=== PATIENT | female | born 1990 | race Caucasian/White ===

== ENCOUNTER 2016-08-05 14:07 | Outpatient (CLI) | payer MEDICAID ==
[2016-08-05 14:57] LABS: APPEARANCE,URINE SLIGHTLY-CLOUDY; BILIRUBIN,URINE NEGATIVE (NEGATIVE); GLUCOSE, URINE NEGATIVE (NEGATIVE); KETONES,URINE NEGATIVE (NEGATIVE); LEUKOCYTE ESTERASE,URINE SMALL (NEGATIVE); NITRITE,URINE POSITIVE (NEGATIVE); PROTEIN,URINE 30 mg/dL (NEGATIVE); URINE SPECIFIC GRAVITY 1.018
[2016-08-05 15:22] LABS: URINE BARBITURATES SCREEN NEGATIVE; URINE OPIATES LOW NEGATIVE; URINE PHENCYCLIDINE SCREEN NEGATIVE
[2016-08-05 15:28] LABS: URINE METHADONE SCREEN UNCONFIRMED POSITIVE
--- NOTE | 2016-08-05 16:00 | L&D Flow Sheet ---
LD Flowsheet Datetime Report Generated by CPN: 08/05/2016 16:00 Datetime: 08/05/2016 15:47 Vital Signs NBP Sys/Gabrielle/Mean (mmHg): 102 (QS system process) : 53 (QS system process) : 74 (QS system process) Pulse: 62 (QS system process) Datetime: 08/05/2016 15:32 Vital Signs NBP Sys/Gabrielle/Mean (mmHg): 112 (QS system process) : 58 (QS system process) : 79 (QS system process) Pulse: 64 (QS system process) Datetime: 08/05/2016 15:30 Patient Position/Activity: Left Tilt; Low Fowlers (Milli Israel, RN) Datetime: 08/05/2016 15:29 Communication Communication Comments: patient returned to unit from [place] (Milli Israel, RN) Datetime: 08/05/2016 14:49 Communication Communication Comments: patient off monitor for transport to US (Milli Israel, RN) Datetime: 08/05/2016 14:40 Assessment A Monitor Interventions for FHR: Ultrasound Adjusted (Milli Israel, RN) Datetime: 08/05/2016 14:38 Vital Signs NBP Sys/Gabrielle/Mean (mmHg): 101 (QS system process) : 57 (QS system process) : 72 (QS system process) Pulse: 68 (QS system process) Datetime: 08/05/2016 14:35 Pain Pain Scale: 0 (Milli Israel, RN) Pain Presence: None/Denies (Milli Israel, RN) Pain Type: N/A (Milli Israel, RN) Vaginal Exam Vaginal Bleeding: None (Milli Wood, RN) Maternal Assessment Level of Consciousness: Fully Conscious (Milli Wood, RN) DTR's/Clonus: DTRs 2+; No Clonus (Milli Wood, RN) Headache: Denies (Milli Wood, RN) Breath Sounds, Left: Clear and Equal (Milli Wood, RN) Breath Sounds, Right: Clear and Equal (Milli Wood, RN) Nausea/Vomiting: Denies (Milli Wood, RN) RUQ Epigastric Pain: Denies (Milli Wood, RN) Patient Care Oxygen Method: Room Air (Milli Wood RN) Patient Position/Activity: Left Tilt; Semi-Fowlers (Milli Wood, YAMILETH) Comfort Measures: Family Support (Milli Wood RN) I/O Interventions: Clear Liquids Given (Milli Wood RN) Teaching Instructional Method: Demo (Milli Wood RN) Plan of Care: Plan of Care Discussed (Milli Wood RN) Unit Routine: [place] to Room; Call Meyer; Bed (Milli Wood RN) Datetime: 08/05/2016 14:26 Communication Communication Comments: Amelia Quinn CNM notified of patient sent from office with complaints of increased pelvic pressure, cervical exam 1/thick/-2 in office today. Order received from Amelia Quinn CNM for U/S for cervical length (Milli Wood RN)
--- NOTE | 2016-08-05 17:01 | Non Stress Test Report ---
Non Stress Test Datetime Report Generated by CPN: 08/05/2016 17:00 DEMOGRAPHIC EGA NST: 32.5 INDICATION Indication for Study: Ordered by Provider MONITORING Monitor Explained: Monitor Explained; Test Explained; Patient Verbalized Understanding Time on Monitor: 08/05/2016 14:27 Time off Monitor: 08/05/2016 16:36 NST Duration: 129 NST INTERVENTIONS NST Interventions: PO Hydration; Reposition Patient Physician Notified NST: Dr. Quach BABY A: [id number] BABY A Movement : Present Contraction Frequency : none FHR Baseline : 125 Accelerations : 15X15 Decelerations : None Variability : Moderate 6-25bpm NST Review: Meets Criteria for Reactive NST NST Review and Verified By : Yonathan Reynolds RN NST Results: Reactive NST REPORT Report Trigger: Send Report
== END 2016-08-05 16:40 | disposition home or self-care (01) ==
LOC: LC 14:07
PROVIDERS: ATTEND Obstetrics & Gynecology
PROC: 4A1HXCZ Monitoring of Products of Conception, Cardiac Rate, External Approach (ICD-10-PCS; principal; 2016-08-05)
DX: O47.03 False labor before 37 completed weeks of gestation, third trimester (principal); Z3A.32 32 weeks gestation of pregnancy
CPT/HCPCS: 59025; 76815; 80307; 81001; 87086; 87088; 87186

== ENCOUNTER 2016-08-16 20:11 | Outpatient (CLI) | payer MEDICAID ==
[2016-08-16 20:52] LABS: APPEARANCE,URINE CLEAR; BILIRUBIN,URINE NEGATIVE (NEGATIVE); GLUCOSE, URINE NEGATIVE (NEGATIVE); KETONES,URINE NEGATIVE (NEGATIVE); LEUKOCYTE ESTERASE,URINE TRACE (NEGATIVE); NITRITE,URINE NEGATIVE (NEGATIVE); PROTEIN,URINE NEGATIVE (NEGATIVE); URINE SPECIFIC GRAVITY 1.008; UROBILINOGEN,URINE NEGATIVE mg/dL (<2.0)
[2016-08-16 21:23] LABS: URINE BARBITURATES SCREEN NEGATIVE; URINE OPIATES LOW NEGATIVE; URINE PHENCYCLIDINE SCREEN NEGATIVE
[2016-08-16 21:27] LABS: URINE METHADONE SCREEN UNCONFIRMED POSITIVE
--- NOTE | 2016-08-16 21:39 | Non Stress Test Report ---
Non Stress Test Datetime Report Generated by CPN: 08/16/2016 21:39 DEMOGRAPHIC EGA NST: 34.2 INDICATION Indication for Study: Other Indication for Study (NST) Other: LC MONITORING Monitor Explained: Monitor Explained; Test Explained; Patient Verbalized Understanding Time on Monitor: 08/16/2016 20:31 Time off Monitor: 08/16/2016 21:27 NST Duration: 56 NST INTERVENTIONS NST Interventions: PO Hydration Physician Notified NST: Dr. Neilsen BABY A: [id number] BABY A Movement : Present Contraction Frequency : irreg FHR Baseline : 130 Accelerations : 15X15 Decelerations : None Variability : Moderate 6-25bpm NST Review: Meets Criteria for Reactive NST NST Review and Verified By : Loree Mcadams Rn NST Results: Reactive NST REPORT Report Trigger: Send Report
== END 2016-08-16 21:38 | disposition home or self-care (01) ==
LOC: LC 20:11
PROVIDERS: ATTEND Specialist
PROC: 4A1HXCZ Monitoring of Products of Conception, Cardiac Rate, External Approach (ICD-10-PCS; principal; 2016-08-16)
DX: O47.03 False labor before 37 completed weeks of gestation, third trimester (principal); Z3A.34 34 weeks gestation of pregnancy
CPT/HCPCS: 59025; 80307; 81001

== ENCOUNTER 2016-09-08 12:41 | Outpatient (CLI) | payer MEDICAID ==
[2016-09-08 13:54] LABS: APPEARANCE,URINE SLIGHTLY-CLOUDY; BILIRUBIN,URINE NEGATIVE (NEGATIVE); GLUCOSE, URINE NEGATIVE (NEGATIVE); KETONES,URINE NEGATIVE (NEGATIVE); LEUKOCYTE ESTERASE,URINE SMALL (NEGATIVE); NITRITE,URINE NEGATIVE (NEGATIVE); PROTEIN,URINE NEGATIVE (NEGATIVE); URINE SPECIFIC GRAVITY 1.014
--- NOTE | 2016-09-08 14:00 | L&D Flow Sheet ---
LD Flowsheet Datetime Report Generated by CPN: 09/08/2016 14:00 Datetime: 09/08/2016 13:29 I/O Interventions: Up to BR (Jaskaran Claudia, RN) Datetime: 09/08/2016 13:24 Communication Communication Comments: P Quinn CNM notified of reactive NST; pt c/o contractions, provider reviewed strip, orders for UA. (Jaskaran Claudia, RN) Datetime: 09/08/2016 13:20 Patient Care Comments: Pt instructed to PO hydrate x1 pitcher of water now. (Jaskaran Claudia, RN) Datetime: 09/08/2016 13:17 Vital Signs NBP Sys/Gabrielle/Mean (mmHg): 108 (QS system process) : 65 (QS system process) : 80 (QS system process) Pulse: 67 (QS system process) LaborFlag: OB Triage (QS system process) Datetime: 09/08/2016 13:10 Patient Care Patient Position/Activity: Left Lateral (Jaskaran Claudia, RN) Datetime: 09/08/2016 12:56 Vital Signs NBP Sys/Gabrielle/Mean (mmHg): 108 (QS system process) : 53 (QS system process) : 77 (QS system process) Pulse: 75 (QS system process) LaborFlag: OB Triage (QS system process) Datetime: 09/08/2016 12:54 Respirations: 16 (Jaskaran Claudia, RN) Temperature (F): 97.8 (Jaskaran Claudia, RN) Temperature (C): 36.6 (QS system process) Pain Pain Presence: None/Denies (Jaskaran Claudia, RN) Maternal Assessment Level of Consciousness: Fully Conscious (Jaskaran Claudia, RN) DTR's/Clonus: DTRs 1+; No Clonus (Jaskaran Claudia, RN) Headache: Denies (Jaskaran Claudia, RN) Breath Sounds, Left: Clear and Equal (Jaskaran Claudia, RN) Breath Sounds, Right: Clear and Equal (Jaskaran Claudia, RN) Nausea/Vomiting: Denies (Jaskaran Claudia, RN) RUQ Epigastric Pain: Denies (Jaskaran Claudia, RN) I/O Interventions: Popsicle (Jaskaran Claudia, RN) Communication Communication Comments: Pt to labor and delivery for repeat NST from [facility]. Pt in no distress, no complaints noted, denies pain. (Jaskaran Claudia, RN) LaborFlag: OB Triage (QS system process)
--- NOTE | 2016-09-08 14:09 | Non Stress Test Report ---
Non Stress Test Datetime Report Generated by CPN: 09/08/2016 14:09 DEMOGRAPHIC EGA NST: 37.4 INDICATION Indication for Study: Ordered by Provider MONITORING Monitor Explained: Monitor Explained; Test Explained; Patient Verbalized Understanding Time on Monitor: 09/08/2016 13:00 Time off Monitor: 09/08/2016 13:32 NST Duration: 32 NST INTERVENTIONS NST Interventions: PO Hydration Physician Notified NST: P OLEARY CNM BABY A: [id number] BABY A Movement : Present Contraction Frequency : irregular FHR Baseline : 120 Accelerations : 15X15 Decelerations : None Variability : Moderate 6-25bpm NST Review: Meets Criteria for Reactive NST NST Review and Verified By : Betito Jennings RN NST Results: Reactive NST REPORT Report Trigger: Send Report
[2016-09-08 14:24] LABS: URINE BARBITURATES SCREEN NEGATIVE; URINE OPIATES LOW NEGATIVE; URINE PHENCYCLIDINE SCREEN NEGATIVE
[2016-09-08 14:26] LABS: URINE METHADONE SCREEN UNCONFIRMED POSITIVE
== END 2016-09-08 14:06 | disposition home or self-care (01) ==
LOC: LC 12:41
PROVIDERS: ATTEND Obstetrics & Gynecology
PROC: 4A1HXCZ Monitoring of Products of Conception, Cardiac Rate, External Approach (ICD-10-PCS; principal; 2016-09-08)
DX: O99.283 Endocrine, nutritional and metabolic diseases complicating pregnancy, third trimester (principal); E86.0 Dehydration; Z3A.37 37 weeks gestation of pregnancy
CPT/HCPCS: 59025; 80307; 81001

== ENCOUNTER 2016-09-12 09:52 | Outpatient (CLI) | payer MEDICAID ==
[2016-09-12 10:58] LABS: APPEARANCE,URINE SLIGHTLY-CLOUDY; BILIRUBIN,URINE NEGATIVE (NEGATIVE); GLUCOSE, URINE NEGATIVE (NEGATIVE); KETONES,URINE NEGATIVE (NEGATIVE); LEUKOCYTE ESTERASE,URINE LARGE (NEGATIVE); NITRITE,URINE NEGATIVE (NEGATIVE); PROTEIN,URINE NEGATIVE (NEGATIVE); URINE SPECIFIC GRAVITY 1.011
[2016-09-12 11:27] LABS: URINE BARBITURATES SCREEN NEGATIVE; URINE OPIATES LOW NEGATIVE; URINE PHENCYCLIDINE SCREEN NEGATIVE
[2016-09-12 11:37] LABS: URINE METHADONE SCREEN UNCONFIRMED POSITIVE
--- NOTE | 2016-09-12 12:00 | L&D Flow Sheet ---
LD Flowsheet Datetime Report Generated by CPN: 09/12/2016 12:00 Datetime: 09/12/2016 11:59 NBP Sys/Gabrielle/Mean (mmHg): 112 (QS system process) : 62 (QS system process) : 80 (QS system process) Pulse: 73 (QS system process) LaborFlag: OB Triage (QS system process) Datetime: 09/12/2016 11:45 NBP Sys/Gabrielle/Mean (mmHg): 115 (QS system process) : 57 (QS system process) : 82 (QS system process) Pulse: 57 (QS system process) LaborFlag: OB Triage (QS system process) Datetime: 09/12/2016 11:16 NBP Sys/Gabrielle/Mean (mmHg): 111 (QS system process) : 53 (QS system process) : 76 (QS system process) Pulse: 71 (QS system process) LaborFlag: OB Triage (QS system process) Datetime: 09/12/2016 11:07 Communication Comments: Lab results reveiwed by Yonathan Short CNM. Order received for CBC with diff (Milli Wood, RN) Datetime: 09/12/2016 11:00 NBP Sys/Gabrielle/Mean (mmHg): 101 (QS system process) : 55 (QS system process) : 74 (QS system process) Pulse: 60 (QS system process) LaborFlag: OB Triage (QS system process) Datetime: 09/12/2016 10:45 Monitor Mode: External; Palpation (Milli Wood RN) Frequency (min): 3-5.5 (Milli Wood, YAMILETH) Quality: Mild (Milli Wood, RN) Duration (sec): 70-130 (Milli Wood, RN) Duration Criteria: Less than Two 120 Second Contractions (Milli Wood, RN) Pattern: Normal: <= 5 Contractions in 10 Minutes (Milli Wood, RN) Resting Tone (Palpate): Relaxed (Milli Wood, RN) Monitor Mode: External US (Milli Wood, RN) FHR Baseline Rate : 125 (Milli Wood, RN) FHR Baseline Changes: No Baseline Change (Milli Wood, RN) Variability: Moderate 6-25 bpm (Milli Wood, RN) Accelerations: None (Milli Wood, RN) Decelerations: None (Milli Wood, RN) Datetime: 09/12/2016 10:40 Dilatation (cm): 2.5 (Milli Wood RN) Effacement (%): 60 (Milli Wood RN) Station: -2 (Milli Wood RN) Exam by: Kierra Wood RN (Milli Wood RN) Vaginal Bleeding: None (Milli Wood RN) Cervix, Consistency: Moderate (Milli Wood RN) Cervix, Position: Posterior (Milli Wood RN) Datetime: 09/12/2016 10:35 IV/Blood Work: IV Started; IV Bolus Started (Milli Wood RN) Datetime: 09/12/2016 10:31 Communication Comments: Dr. Ledesma notified of patient presenting to unit with vomiting x1 , nausea and contractions. Patient states she thinks she is dehydrated, urine is dark yellow. Order received to start IV and bolus 1 L of LR (Milli Wood RN) Datetime: 09/12/2016 10:20 NBP Sys/Gabrielle/Mean (mmHg): 115 (QS system process) : 60 (QS system process) : 81 (QS system process) Pulse: 72 (QS system process) Monitor Interventions for UA: [place] Adjusted (Milli Wood RN) Resting Tone (Palpate): Relaxed (Milli Wood RN) Monitor Mode: External US (Milli Wood RN) Pain Scale: 3 (Milli Wood RN) Pain Presence: Intermittent (Milli Wood RN) Pain Type: Cramping (Milli Wood RN) Pain Location: Abdomen (Milli Wood RN) Pain Goal: 1 (Milli Wood RN) Pain Relief Measures: Comfort Measures (Milli Wood, YAMILETH) Membrane Status: Intact (Milli Wood RN) Vaginal Bleeding: None (Milli Wood RN) Level of Consciousness: Fully Conscious (Milli Wood RN) DTR's/Clonus: DTRs 2+; No Clonus (Milli Wood, YAMILETH) Headache: Denies (Milli Wood RN) Breath Sounds, Left: Clear and Equal (Milli Wood RN) Breath Sounds, Right: Clear and Equal (Milli Wood, YAMILETH) Nausea/Vomiting: Present (Milli Wood RN) RUQ Epigastric Pain: Denies (Milli Wood, YAMILETH) Oxygen Method: Room Air (Milli Wood RN) Patient Position/Activity: Right Tilt; Semi-Fowlers (Milli Wood, YAMILETH) I/O Interventions: Clear Liquids Given (Milli Wood, YAMILETH) Instructional Method: Verbal (Milli Wood RN) Plan of Care: Plan of Care Discussed (Milli Wood, YAMILETH) Unit Routine: [place] to Room; Call Meyer; Bed; Visiting Policy (Milli Wood RN) Related: Common Discomforts of (Milli Wood RN) LaborFlag: OB Triage (QS system process)
[2016-09-12 12:02] LABS: ABSOLUTE EOSINOPHILS # (AUTO) 0.2 10^3/uL (0.0-0.6); ABSOLUTE LYMPHOCYTES (AUTO) 2.6 10^3/uL (0.5-4.7); ABSOLUTE MONOCYTES (AUTO) 0.8 10^3/uL (0.1-1.4); ABSOLUTE NEUT (AUTO) 7.6 10^3/uL (1.7-8.2); BASOPHILS % (AUTO) 0.2 % (0-2); EOSINOPHILS % (AUTO) 2.1 % (0-6); HEMOGLOBIN 11.6 g/dL (12.0-15.5); HGB HCT DIFFERENCE 0.8; LYMPHOCYTES % (AUTO) 22.8 % (13-45); MEAN CORPUSCULAR HEMOGLOBIN 31.5 pg (27.0-33.4); MEAN CORPUSCULAR HGB CONC 34.1 g/dL (32.0-36.0); MEAN CORPUSCULAR VOLUME 92 fl (80-97); MONOCYTES % (AUTO) 7.1 % (3-13); RED BLOOD COUNT 3.69 10^6/uL (3.72-5.28); RED CELL DISTRIBUTION WIDTH 13.3 % (11.5-14.0); SEGMENTED NEUTROPHILS % (AUTO) 67.8 % (42-78); WHITE BLOOD COUNT 11.2 10^3/uL (4.0-10.5)
--- NOTE | 2016-09-12 12:25 | Non Stress Test Report ---
Non Stress Test Datetime Report Generated by CPN: 09/12/2016 12:25 DEMOGRAPHIC EGA NST: 38.1 INDICATION Indication for Study: Ordered by Provider MONITORING Monitor Explained: Monitor Explained; Test Explained; Patient Verbalized Understanding Time on Monitor: 09/12/2016 10:16 Time off Monitor: 09/12/2016 12:13 NST Duration: 117 NST INTERVENTIONS NST Interventions: PO Hydration; IV Fluids Physician Notified NST: A. Angela, CNM BABY A Movement : Present Contraction Frequency : 2-7 FHR Baseline : 130 Accelerations : 15X15 Decelerations : None Variability : Moderate 6-25bpm NST Review: Meets Criteria for Reactive NST NST Review and Verified By : YAMILETH Mauricio Results: Reactive NST REPORT Report Trigger: Send Report
== END 2016-09-12 12:31 | disposition home or self-care (01) ==
LOC: LC 09:52
PROVIDERS: ATTEND Student in an Organized Health Care Education/Training Program
PROC: 4A1HXCZ Monitoring of Products of Conception, Cardiac Rate, External Approach (ICD-10-PCS; principal; 2016-09-12)
DX: O47.1 False labor at or after 37 completed weeks of gestation (principal); Z3A.38 38 weeks gestation of pregnancy
CPT/HCPCS: 36415; 59025; 80307; 81005; 85025

== ENCOUNTER 2016-09-26 16:59 | Inpatient (IN) | payer MEDICAID ==
[2016-09-26 17:58] LABS: APPEARANCE,URINE CLEAR; BILIRUBIN,URINE NEGATIVE (NEGATIVE); GLUCOSE, URINE NEGATIVE (NEGATIVE); KETONES,URINE NEGATIVE (NEGATIVE); LEUKOCYTE ESTERASE,URINE LARGE (NEGATIVE); NITRITE,URINE NEGATIVE (NEGATIVE); PROTEIN,URINE NEGATIVE (NEGATIVE); URINE SPECIFIC GRAVITY 1.011; UROBILINOGEN,URINE NEGATIVE mg/dL (<2.0)
[2016-09-26 18:26] LABS: URINE BARBITURATES SCREEN NEGATIVE; URINE OPIATES LOW NEGATIVE; URINE PHENCYCLIDINE SCREEN NEGATIVE
[2016-09-26 18:34] LABS: URINE METHADONE SCREEN UNCONFIRMED POSITIVE
--- NOTE | 2016-09-26 20:02 | L&D Flow Sheet ---
LD Flowsheet Datetime Report Generated by CPN: 09/26/2016 20:00 Datetime: 09/26/2016 18:14 Communication Communication Comments: up to walk (Tamiko Bellavance, RNC) Datetime: 09/26/2016 18:13 Patient Care Patient Position/Activity: Walking (Tamiko Bellavance, RNC) Datetime: 09/26/2016 17:59 Uterine Activity Monitor Mode: External (Tamiko Bellavance, RNC) Frequency (min): irreg (Tamiko Bellavance, RNC) Quality: Mild (Tamiko Bellavance, RNC) Duration (sec): 70-90 (Tamiko Bellavance, RNC) Resting Tone (Palpate): Relaxed (Tamiko Bellavance, RNC) Assessment A Monitor Mode: External US (Tamiko Bellavance, RNC) FHR Baseline Rate : 130 (Tamiko Bellavance, RNC) Variability: Moderate 6-25 bpm (Tamiko Bellavance, RNC) Accelerations: 15X15 (Tamiko Bellavance, RNC) Decelerations: None (Tamiko Bellavance, RNC) Patient Care Patient Position/Activity: Semi-Fowlers (Tamiko Bellavance, RNC) Datetime: 09/26/2016 17:30 Vaginal Exam Dilatation (cm): 2.5 (Tamiko Bellavance, RNC) Effacement (%): 90 (Tamiko Bellavance, RNC) Station: -1 (Tamiko Bellavance, RNC) Exam by: D Bellavance RNC (Tamiko Bellavance, RNC) Datetime: 09/26/2016 17:29 Uterine Activity Monitor Mode: External (Tamiko Bellavance, RNC) Frequency (min): 3-5 (Tamiko Bellavance, RNC) Quality: Mild (Tamiko Bellavance, RNC) Duration (sec): 50-60 (Tamiko Bellavance, RNC) Resting Tone (Palpate): Relaxed (Tamiko Bellavance, RNC) Assessment A Monitor Mode: External US (Tamiko Bellavance, RNC) Monitor Interventions for FHR: Ultrasound Adjusted (Tamiko Bellavance, RNC) FHR Baseline Rate : 135 (Tamiko Bellavance, RNC) Variability: Moderate 6-25 bpm (Tamiko Bellavance, RNC) Accelerations: 10X10 (Tamiko Bellavance, RNC) Decelerations: None (Tamiko Bellavance, RNC) Datetime: 09/26/2016 17:19 Vital Signs NBP Sys/Gabrielle/Mean (mmHg): 122 (QS system process) : 73 (QS system process) : 92 (QS system process) Pulse: 78 (QS system process) LaborFlag: OB Triage (QS system process) Datetime: 09/26/2016 17:15 Uterine Activity Monitor Mode: External (Tamiko Bellavance, RNC) Frequency (min): 2-3 (Tamiko Bellavance, RNC) Quality: Mild (Tamiko Bellavance, RNC) Duration (sec): 40-80 (Tamiko Bellavance, RNC) Resting Tone (Palpate): Relaxed (Tamiko Bellavance, RNC) Assessment A Monitor Mode: External US (Tamiko Bellavance, RNC) FHR Baseline Rate : 135 (Tamiko Bellavance, RNC) Variability: Moderate 6-25 bpm (Tamiko Bellavance, RNC) Accelerations: 15X15 (Tamiko Bellavance, RNC) Decelerations: None (Tamiko Bellavance, RNC) Pain Pain Coping: Breathing Through Contractions (Tamiko Bellavance, RNC) Patient Care Patient Position/Activity: Right Tilt; Semi-Fowlers (Tamiko Bellavance, RNC) Comfort Measures: Family Support (Tamiko Bellavance, RNC) I/O Interventions: Clear Liquids Given (Tamiko Bellavance, RNC) Datetime: 09/12/2016 11:59 LaborFlag: OB Triage (QS system process) Datetime: 09/12/2016 11:45 LaborFlag: OB Triage (QS system process) Datetime: 09/12/2016 11:16 LaborFlag: OB Triage (QS system process) Datetime: 09/12/2016 11:00 LaborFlag: OB Triage (QS system process) Datetime: 09/12/2016 10:20 LaborFlag: OB Triage (QS system process) Datetime: 09/08/2016 14:01 LaborFlag: OB Triage (QS system process) Datetime: 09/08/2016 13:54 LaborFlag: OB Triage (QS system process) Datetime: 09/08/2016 13:17 LaborFlag: OB Triage (QS system process) Datetime: 09/08/2016 12:56 LaborFlag: OB Triage (QS system process) Datetime: 09/08/2016 12:54 Temperature (C): 36.6 (QS system process) LaborFlag: OB Triage (QS system process) Datetime: 08/16/2016 21:07 LaborFlag: OB Triage (QS system process) Datetime: 08/16/2016 20:36 LaborFlag: OB Triage (QS system process) Datetime: 08/16/2016 20:32 LaborFlag: OB Triage (QS system process) Datetime: 08/05/2016 16:36 LaborFlag: OB Triage (QS system process) Datetime: 08/05/2016 16:34 LaborFlag: OB Triage (QS system process) Datetime: 08/05/2016 16:03 LaborFlag: OB Triage (QS system process) Datetime: 08/05/2016 15:47 LaborFlag: OB Triage (QS system process) Datetime: 08/05/2016 15:32 LaborFlag: OB Triage (QS system process) Datetime: 08/05/2016 14:38 LaborFlag: OB Triage (QS system process) Datetime: 08/05/2016 14:35 LaborFlag: OB Triage (QS system process)
[2016-09-26] MEDS ORDERED: MISOPROSTOL 0.2 MG TABLET ONE (20:40)
[2016-09-26] MEDS ORDERED: LIDOCAINE 1% INJ-PF (10 MG/ML) 30 ML SDV ONE (20:41)
[2016-09-26] MEDS ORDERED: OXYTOCIN/NORMAL SALINE 20 UNIT/1,000 ML RTUINJ ONE (20:41)
[2016-09-26] MEDS ORDERED: RINGERS SOLUTION,LACTATED 1,000 ML IV PRN (20:42)
[2016-09-26] MEDS ORDERED: RINGERS SOLUTION,LACTATED 1,000 ML IV ONE (20:42)
[2016-09-26] MEDS ORDERED: EPHEDRINE SULFATE INJ 50 MG/1 ML AMPULE IV PRN (20:43)
[2016-09-26] MEDS ORDERED: DIPHENHYDRAMINE HCL 50 MG/ML VIAL IV PRN (20:43)
[2016-09-26] MEDS ORDERED: EPHEDRINE SULFATE INJ 50 MG/1 ML AMPULE IV ONE (20:43)
[2016-09-26] MEDS ORDERED: BUPIVACAINE HCL 0.25 % INJ/PF (2.5 MG/1 ML) 30 ML VIAL INFIL ONE (20:43)
[2016-09-26] MEDS ORDERED: FENTANYL/BUPIVACAINE/NS/PF 100 ML EPI PRN (20:43)
[2016-09-26] MEDS ORDERED: BENZOIN/ALOE VERA/STORAX/TOLU TINCTURE 60 ML TP PRN (20:43)
[2016-09-26 21:04] LABS: ABSOLUTE EOSINOPHILS # (AUTO) 0.2 10^3/uL (0.0-0.6); ABSOLUTE LYMPHOCYTES (AUTO) 3.7 10^3/uL (0.5-4.7); ABSOLUTE MONOCYTES (AUTO) 1.5 10^3/uL (0.1-1.4); ABSOLUTE NEUT (AUTO) 14.3 10^3/uL (1.7-8.2); BASOPHILS % (AUTO) 0.2 % (0-2); HEMATOCRIT 35.4 % (36.0-47.0); HEMOGLOBIN 12.2 g/dL (12.0-15.5); HGB HCT DIFFERENCE 1.2; LYMPHOCYTES % (AUTO) 18.7 % (13-45); MEAN CORPUSCULAR HEMOGLOBIN 31.5 pg (27.0-33.4); MEAN CORPUSCULAR HGB CONC 34.4 g/dL (32.0-36.0); MEAN CORPUSCULAR VOLUME 92 fl (80-97); MONOCYTES % (AUTO) 7.8 % (3-13); RED BLOOD COUNT 3.85 10^6/uL (3.72-5.28); RED CELL DISTRIBUTION WIDTH 13.3 % (11.5-14.0); SEGMENTED NEUTROPHILS % (AUTO) 72.3 % (42-78); WHITE BLOOD COUNT 19.7 10^3/uL (4.0-10.5)
[2016-09-26] MEDS ORDERED: EPHEDRINE SULFATE INJ 50 MG/1 ML AMPULE ONE (23:37)
[2016-09-26] MEDS ORDERED: FENTANYL/BUPIVACAINE/NS/PF 200 MCG/100 ML RTUINJ EPI ONE (23:37)
[2016-09-26] MEDS ORDERED: BUPIVACAINE HCL 0.25 % INJ/PF (2.5 MG/1 ML) 30 ML VIAL ONE (23:37)
[2016-09-27] MEDS ORDERED: PROMETHAZINE HCL 25 MG TABLET PO PRN (00:55)
[2016-09-27] MEDS ORDERED: PSEUDOEPHEDRINE HCL 30 MG TABLET PO PRN (00:55)
[2016-09-27] MEDS ORDERED: BENZOCAINE/MENTHOL AEROSOL SPRAY 56 ML TOP PRN (00:55)
[2016-09-27] MEDS ORDERED: NA PHOS,M-B/NA PHOS,DI-BA (ADULT) 133 ML ENEMA PR PRN (00:55)
[2016-09-27] MEDS ORDERED: DIPHENHYDRAMINE HCL 25 MG CAPSULE PO PRN (00:55)
[2016-09-27] MEDS ORDERED: PROMETHAZINE HCL INJ 25 MG/1 ML VIAL IV PRN (00:55)
[2016-09-27] MEDS ORDERED: PROMETHAZINE HCL 25 MG SUPP.RECT PR PRN (00:55)
[2016-09-27] MEDS ORDERED: ACETAMINOPHEN WITH CODEINE #3 TABLET PO PRN ×2 (00:55)
[2016-09-27] MEDS ORDERED: ACETAMINOPHEN 650 MG SUPP.RECT PR PRN (00:55)
[2016-09-27] MEDS ORDERED: GLYCERIN/WITCH HAZEL LEAF 1 EACH MED..PAD TP PRN (00:55)
[2016-09-27] MEDS ORDERED: ZOLPIDEM TARTRATE 5 MG TABLET PO PRN (00:55)
[2016-09-27] MEDS ORDERED: MEASLES,MUMPS&RUBELLA VACC/PF 0.5 ML VIAL SUBCUT PRN (00:55)
[2016-09-27] MEDS ORDERED: DIPH/PERTUSS(ACELL)/TETANUS VAC/PF 0.5 ML SYR (>=10YO) IM PRN (00:55)
[2016-09-27] MEDS ORDERED: DIBUCAINE 1% OINTMENT 28 GM TP PRN (00:55)
[2016-09-27] MEDS ORDERED: OXYTOCIN/NORMAL SALINE 20 UNIT/1,000 ML RTUINJ IV PRN (00:55)
[2016-09-27] MEDS ORDERED: MAGNESIUM HYDROXIDE SUSP 30 ML UDCUP PO PRN (00:55)
[2016-09-27] MEDS ORDERED: IBUPROFEN 800 MG TABLET ONE (02:22)
[2016-09-27] MEDS: IBUPROFEN 800 MG TABLET PO SCH ×3 (02:23→21:32)
--- NOTE | 2016-09-27 03:01 | Admission Physical ---
Datetime Report Generated by CPN: 09/27/2016 03:00 CURRENT ADMISSION Chief Complaint: Uterine Contractions Indication for Induction: Not Applicable Admit Plan: Admit to Unit ALLERGIES Medication Allergies: No Medication Allergies: No Known Allergies (09/12/2016) Medication Allergies: No Known Allergies (09/08/2016) Medication Allergies: No Known Allergies (09/05/2013) Latex: No Latex Allergies Food Allergies: denies Environmental Allergies: denies OBSTETRICAL HISTORY EDC: 09/25/2016 00:00 : 2 Para: 1 Para: 1 Para: 1 Term: 1 : 0 SAB: 0 IAB: 0 Ectopic: 0 Livin Cesareans: 0 VBACs: 0 Multiple Births: 0 Gestational Diabetes: No Rh Sensitization: No Incompetent Cervix: No NITHYA: No Infertility: No ART Treatment: No Uterine Anomaly: No IUGR: No Macrosomia: No Hx Loss/Stillborn: No PIH: No Hx : No Placenta Previa/Abruption: No Depression/PP Depression: No PTL/PROM: No Post Hemorrhage: No Current Procedures: Ultrasound; NST Obstetrical History Comments: G1: 2011 G2: current SEE RECORDS Alcohol: No Marijuana : No Cocaine: No Other Illicit Drugs: No Cigarettes: Current Some Day Smoker. [id number] Cigarette Frequency: 5 - 10 per day Cigarette Comments: 1/2 Pack a day MEDICAL HISTORY Diabetes: No Blood Transfusion: No Pulmonary Disease (Asthma, TB): No Hypertension: No Java Developer Surgery: No Heart Disease: No Hosp/Surgery: Yes Autoimmune Disorder: No Anesthetic Complications: No Kidney Disease: No Abnormal Pap Smear: No Neuro/Epilepsy: No Psychiatric Disorders: No Other Medical Diseases: No Hepatitis/Liver Disease: No Significant Family History: No Varicosities/Phlebitis: No Trauma/Violence : No Thyroid Dysfunction: No INFECTIOUS HISTORY Gonorrhea: No Genital Herpes: No Chlamydia: No Syphilis: No HIV/AIDS Exposure: No HPV: No PHYSICAL EXAM General: Normal HEENT: Normal Neurologic: Normal Thyroid: Normal Heart: Normal Lungs: Normal Breast: Deferred Back: Normal Abdomen: Normal Genitourinary Exam: Normal Extremities: Normal DTRs: Normal Pelvic Type: Adequate Vital Signs: Reviewed VAGINAL EXAM Dilatation: 5 Effacement: 100 Station: 0 MEMBRANES Membranes: Intact FETUS A EGA: 40.1 Monitoring: External US FHR- Baseline: 140 Variability: Moderate 6-25bpm Decelerations: None FHR Category: Category I Admit Comment: efw 8lbs PLANS FOR LABOR AND DELIVERY Labor and Delivery: None Pain Management: Epidural Feeding Preference: Breast Benefit of Breast Feed Discussed: Yes Circumcision: Yes INFORMED CONSENT Signature: with User ID: [email or web address]
--- NOTE | 2016-09-27 03:19 | Delivery Summary ---
Del Sum A-C Datetime Report Generated by CPN: 09/27/2016 03:19 ADMISSION DATA Chief Complaint: Uterine Contractions Indication for Induction: Not Applicable Admission Impression: Active Labor; Intact Membranes Admit Provider Comments: efw 8lbs DELIVERY PERSONNEL Delivery Doctor:: Anaya Gilbert MD Labor and Delivery Nurse:: Samuel Blanco RNice carver Nurse:: Jessi Cruz RN Nursery Nurse:: Jeanne Hill RN Heavy Equipment Operator Apprentice/SHAMIR: Dalila Green, ST MATERNAL INFORMATION Delivery Anesthesia: Epidural Medications After Delivery: Pitocin Drip 20 Units/1000ml NSS Estimated Blood Loss (ml): 250 Maternal Complications: Other Other Maternal Complications: Methadone LABOR SUMMARY EDC: 09/25/2016 00:00 No. Babies in Womb: 1 Attempted: No Labor Anesthesia: Epidural LABOR INFORMATION Reason for Induction: Not Applicable Onset of Labor: 09/26/2016 20:31 Complete Dilatation: 09/27/2016 00:23 Oxytocin: N/A Group B Beta Strep: Negative Antibiotics # of Doses: N/A Antibiotics Time of Last Dose: N/A Steroids Given: None Reason Steroids Not Administered: Not Applicable MEMBRANES Membranes Rupture Method: Spontaneous Rupture of Membranes: 09/26/2016 23:30 Length of Rupture (hr): 1.13 Amniotic Fluid Color: Clear Amniotic Fluid Amount: Small Amniotic Fluid Odor: Normal STAGES OF LABOR Stage 1 hr: 3 Stage 1 min: 52 Stage 2 hr: 0 Stage 2 min: 15 Stage 3 hr: 0 Stage 3 min: 2 Total Time in Labor hr: 4 Total Time in Labor min: 9 VAGINAL DELIVERY Episiotomy: None Laceration Extension: First Degree Laceration Type: Perineal Laceration Repair: Yes Laceration Repair Note: repaired with 3-0 chromic suture Initial Vag Sponge Count: 0 Final Vag Sponge Count: 0 Initial Vag Sharps Count: 0 Final Vag Sharps Count: 0 Sponge Count Correct: Vaginal Sweep Performed Sharps Count Correct: Yes CSECTION DELIVERY Primary Indication: N/A Secondary Indication: N/A CSection Incidence: N/A Labor: N/A Elective: N/A CSection Incision: N/A BABY A INFORMATION Delivery Date/Time: 09/27/2016 00:38 Method of Delivery: Vaginal Born in Route : No : N/A Forceps: N/A Vacuum Extraction: N/A Shoulder Dystocia : No PRESENTATION/POSITION BABY A Presentation: Cephalic Cephalic Presentation: Vertex Vertex Position: Left Occipital Anterior Breech Presentation: N/A PLACENTA INFORMATION BABY A Placenta Delivery Time : 09/27/2016 00:40 Placenta Method of Delivery: Spontaneous Placenta Status: Delivered SCORES BABY A Heart Rate 1 min: >100 bpm Resp Effort 1 min: Good Cry Reflex Irritability 1 min: Cough or Sneeze or Pulls Away Muscle Tone 1 min: Active Motion Color 1 min: Blue/Pale Resuscitation Effort 1 min: N/A SCORE 1 MIN: 8 Heart Rate 5 min: >100 bpm Resp Effort 5 min: Good Cry Reflex Irritability 5 min: Cough or Sneeze or Pulls Away Muscle Tone 5 min: Active Motion Color 5 min: Body [place], Extremities Blue Resuscitation Effort 5 min: N/A SCORE 5 MIN: 9 INFORMATION BABY A Gestational Age at Delivery: 40.2 Gestational Status: Full Term- 39- 40.6 Weeks Infant Outcome : Liveborn Infant Condition : Stable Infant Sex: Male IDENTIFICATION BABY A Verification Date/Time: 09/27/2016 01:42 ID Band Number: [id number] Mother's Name Verified: Yes Infant RN Verifying Infant: S.Lattibeaudeir, RN and J.Field, RN WEIGHT/LENGTH BABY A Birthweight (gm): 3405 Weight (lb): 7 Weight (oz): 8 Infant Length (in): 20.00 Infant Length (cm): 50.80 CORD INFORMATION BABY A No. Cord Vessels: 3 Nuchal Cord : Around Neck x2, Loose Cord Blood Taken: Yes-For Eval (Mom's Blood Type - or O+) Infant Suction: None ASSESSMENT BABY A Infant Complications: None Physical Findings at Delivery: Within Normal Limits Infant Respirations: Appears Normal Skin to Skin: Yes Skin to Skin Time (min): 60 Sales And Marketing Analyst/ALS Called : No Infant Care By: Ishaan Hill RN Transferred To: Remains with Mother BABY B INFORMATION : N/A SIGNATURES Signature: with User ID: [email or web address]
[2016-09-27] MEDS ORDERED: INFLUENZA ADLT QUAD (36MOS+) 2016-17 VAC 0.5 ML SYR IM PRN (03:41)
--- NOTE | 2016-09-27 07:01 | L&D Flow Sheet ---
LD Flowsheet Datetime Report Generated by CPN: 09/27/2016 07:00 Datetime: 09/27/2016 02:15 Stage of : Recovery (Samuel Blanco RN) NBP Sys/Gabrielle/Mean (mmHg): 122 (QS system process) : 64 (QS system process) : 86 (QS system process) Pulse: 68 (QS system process) Respirations: 16 (Samuel Blanco RN) Pain Type: Ache (Samuel Blanco RN) Pain Location: Perineum; Head (Samuel Blanco RN) Pain Goal: 0 (Samuel Blanco RN) Pain Relief Measures: Comfort Measures (Samuel Blanco RN) Datetime: 09/27/2016 02:00 Stage of : Recovery (Samuel Blanco RN) NBP Sys/Gabrielle/Mean (mmHg): 137 (QS system process) : 64 (QS system process) : 81 (QS system process) Pulse: 96 (QS system process) Respirations: 16 (Samuel Blanco RN) Pain Scale: 2 (Samuel Blanco RN) Pain Presence: Intermittent (Samuel Blanco RN) Pain Type: Ache (Annotations: Sore. PT also complains of headache. ) (Samuel Blanco RN) Pain Location: Perineum; Head (Samuel Blanco RN) Pain Goal: 0 (Samuel Blanco RN) Pain Relief Measures: Pain Medication Given (Samuel Blanco RN) Datetime: 09/27/2016 01:45 Stage of : Recovery (Samuel Blanco RN) Respirations: 16 (Samuel Blanco RN) Datetime: 09/27/2016 01:15 Stage of : Recovery (Samuel Francis, RN) Datetime: 09/27/2016 01:07 NBP Sys/Gabrielle/Mean (mmHg): 105 (QS system process) : 67 (QS system process) : 81 (QS system process) Pulse: 87 (QS system process) Datetime: 09/27/2016 01:05 NBP Sys/Gabrielle/Mean (mmHg): 114 (QS system process) : 65 (QS system process) : 81 (QS system process) Pulse: 89 (QS system process) Datetime: 09/27/2016 01:00 Stage of : Recovery (Samuel Blanco RN) Datetime: 09/27/2016 00:45 Stage of : Recovery (Samuel Blanco RN) Pain Scale: 2 (Samuel Blanco RN) Pain Presence: Constant (Samuel Blanco RN) Pain Type: Ache (Samuel Balnco RN) Pain Location: Perineum (Samuel Blanco RN) Pain Goal: 0 (Samuel Blanco RN) Pain Relief Measures: Comfort Measures (Samuel Blanco RN) Datetime: 09/27/2016 00:23 NBP Sys/Gabrielle/Mean (mmHg): 129 (QS system process) : 72 (QS system process) : 90 (QS system process) Pulse: 87 (QS system process) Dilatation (cm): 10.0 (Jessi Cruz RN) Effacement (%): 100 (Jessi Cruz RN) Station: 2 (Jessi Cruz RN) Exam by: Ishaan Cruz RN (Jessi Cruz RN) LaborFlag: OB Triage (QS system process) Datetime: 09/27/2016 00:07 NBP Sys/Gabrielle/Mean (mmHg): 116 (QS system process) : 67 (QS system process) : 84 (QS system process) Pulse: 93 (QS system process) LaborFlag: OB Triage (QS system process) Datetime: 09/27/2016 00:00 Monitor Mode: External (Samuel Blanco RN) Frequency (min): 1.5-3.5 (Samuel Blanco RN) Quality: Moderate to Strong (Samuel Blanco RN) Duration (sec): 60-100 (Samuel Blanco RN) Resting Tone (Palpate): Relaxed (Samuel Blanco RN) Monitor Mode: External US (Samuel Blanco RN) FHR Baseline Rate : 140 (Samuel Blanco RN) Variability: Moderate 6-25 bpm (Samuel Blanco RN) Accelerations: 10X10 (Samuel Blanco RN) Datetime: 09/26/2016 23:52 NBP Sys/Gabrielle/Mean (mmHg): 122 (QS system process) : 60 (QS system process) : 86 (QS system process) Pulse: 82 (QS system process) LaborFlag: OB Triage (QS system process) Datetime: 09/26/2016 23:30 NBP Sys/Gabrielle/Mean (mmHg): 128 (Jessi Cruz RN) : 65 (Jessi Lattavia RN) : 90 (Jessi Lattibeatrinity, RN) Pulse: 71 (Jessi Lattibeaudeir, RN) Monitor Mode: External (Samuel Blanco RN) Frequency (min): 2-4 (Samuel Blanco RN) Quality: Moderate to Strong (Samuel Blanco RN) Duration (sec): 70-100 (Samuel Blanco RN) Resting Tone (Palpate): Relaxed (Samuel Blanco RN) Monitor Mode: External US (Samuel Blanco RN) FHR Baseline Rate : 145 (Samuel Blanco RN) Variability: Moderate 6-25 bpm (Samuel Blanco RN) Accelerations: 15X15 (Samuel Blanco RN) Dilatation (cm): 9.0 (Jessi Cruz RN) Effacement (%): 90 (Jessi Cruz RN) Station: 1 (Jessi Cruz RN) Exam by: Ishaan Boykin RN; YAMILETH [place] (Jessi Cruz RN) Membrane Status: Ruptured (Jessi Cruz RN) Membranes Rupture Method: Spontaneous (Jessi Cruz RN) Amniotic Fluid Color: Clear (Jessi Cruz RN) Amniotic Fluid Amount: Small (Samuel Blanco RN) Amniotic Fluid Odor: Normal (Jessi Cruz RN) LaborFlag: OB Triage (QS system process) Datetime: 09/26/2016 23:27 NBP Sys/Gabrielle/Mean (mmHg): 149 (QS system process) : 73 (QS system process) : 96 (QS system process) Pulse: 83 (QS system process) LaborFlag: OB Triage (QS system process) Datetime: 09/26/2016 23:07 NBP Sys/Gabrielle/Mean (mmHg): 114 (QS system process) : 57 (QS system process) : 81 (QS system process) Pulse: 75 (QS system process) LaborFlag: OB Triage (QS system process) Datetime: 09/26/2016 22:59 Monitor Mode: External (Samuel Bullockford, RN) Frequency (min): 1.5-4.5 (Samuel Francis, RN) Quality: Moderate to Strong (Samuel Francis, RN) Duration (sec): 60-110 (Samuel Francis, RN) Resting Tone (Palpate): Relaxed (Samuel Francis, RN) Monitor Mode: External US (Samuel Francis, RN) FHR Baseline Rate : 140 (Samuel Francis, RN) Variability: Moderate 6-25 bpm (Samuel Francis, RN) Accelerations: 15X15 (Samuel Francis, RN) Datetime: 09/26/2016 22:52 NBP Sys/Gabrielle/Mean (mmHg): 113 (QS system process) : 57 (QS system process) : 78 (QS system process) Pulse: 80 (QS system process) LaborFlag: OB Triage (QS system process) Datetime: 09/26/2016 22:34 NBP Sys/Gabrielle/Mean (mmHg): 112 (QS system process) : 57 (QS system process) : 77 (QS system process) Pulse: 75 (QS system process) LaborFlag: OB Triage (QS system process) Datetime: 09/26/2016 22:30 Monitor Mode: External (Samuel Blanco RN) Frequency (min): 1.5-3 (Samuel Blanco RN) Quality: Moderate to Strong (Samuel Blanco RN) Duration (sec): 50-130 (Samuel Blanco RN) Resting Tone (Palpate): Relaxed (Samuel Blanco RN) Monitor Mode: External US (Samuel Blanco RN) FHR Baseline Rate : 145 (Samuel Blanco RN) Variability: Moderate 6-25 bpm (Samuel Blanco RN) Accelerations: 15X15 (Samuel Francis, RN) Decelerations: Prolonged (Samuel Francis, RN) Datetime: 09/26/2016 22:28 NBP Sys/Gabrielle/Mean (mmHg): 114 (QS system process) : 57 (QS system process) : 82 (QS system process) Pulse: 67 (QS system process) LaborFlag: OB Triage (QS system process) Datetime: 09/26/2016 22:24 NBP Sys/Gabrielle/Mean (mmHg): 119 (QS system process) : 57 (QS system process) : 81 (QS system process) Pulse: 76 (QS system process) LaborFlag: OB Triage (QS system process) Datetime: 09/26/2016 22:18 NBP Sys/Gabrielle/Mean (mmHg): 114 (QS system process) : 57 (QS system process) : 80 (QS system process) Pulse: 74 (QS system process) LaborFlag: OB Triage (QS system process) Datetime: 09/26/2016 22:14 NBP Sys/Gabrielle/Mean (mmHg): 114 (QS system process) : 55 (QS system process) : 79 (QS system process) Pulse: 69 (QS system process) LaborFlag: OB Triage (QS system process) Datetime: 09/26/2016 22:09 Dilatation (cm): 7.0 (Samuel Blanco RN) Effacement (%): 100 (Samuel Blanco RN) Station: -1 (Samuel Blanco RN) Exam by: Ishaan Cruz RN (Samuel Blanco RN) Membrane Status: Bulging (Samuel Blanco RN) Datetime: 09/26/2016 22:08 NBP Sys/Gabrielle/Mean (mmHg): 112 (QS system process) : 56 (QS system process) : 81 (QS system process) Pulse: 79 (QS system process) LaborFlag: OB Triage (QS system process) Datetime: 09/26/2016 22:04 NBP Sys/Gabrielle/Mean (mmHg): 117 (QS system process) : 56 (QS system process) : 80 (QS system process) Pulse: 78 (QS system process) LaborFlag: OB Triage (QS system process) Datetime: 09/26/2016 22:00 Monitor Mode: External (Samuel Blanco, RN) Frequency (min): 1.5-3.5 (Samuel Blanco, RN) Quality: Moderate to Strong (Samuel Blanco, RN) Duration (sec): 50-90 (Samuel Blanco, RN) Resting Tone (Palpate): Relaxed (Samuel Blanco, RN) Monitor Mode: External US (Samuel Blanco, RN) FHR Baseline Rate : 135 (Samuel Blanco, RN) Variability: Moderate 6-25 bpm (Samuel Francis, RN) Datetime: 09/26/2016 21:59 NBP Sys/Gabrielle/Mean (mmHg): 132 (QS system process) : 60 (QS system process) : 86 (QS system process) Pulse: 66 (QS system process) LaborFlag: OB Triage (QS system process) Datetime: 09/26/2016 21:52 NBP Sys/Gabrielle/Mean (mmHg): 111 (QS system process) : 69 (QS system process) : 78 (QS system process) Pulse: 83 (QS system process) LaborFlag: OB Triage (QS system process) Datetime: 09/26/2016 21:50 NBP Sys/Gabrielle/Mean (mmHg): 113 (QS system process) : 58 (QS system process) : 82 (QS system process) Pulse: 72 (QS system process) LaborFlag: OB Triage (QS system process) Datetime: 09/26/2016 21:49 NBP Sys/Gabrielle/Mean (mmHg): 113 (QS system process) : 59 (QS system process) : 82 (QS system process) Pulse: 73 (QS system process) LaborFlag: OB Triage (QS system process) Datetime: 09/26/2016 21:48 NBP Sys/Gabrielle/Mean (mmHg): 125 (QS system process) : 60 (QS system process) : 87 (QS system process) Pulse: 77 (QS system process) LaborFlag: OB Triage (QS system process) Datetime: 09/26/2016 21:47 NBP Sys/Gabrielle/Mean (mmHg): 121 (QS system process) : 59 (QS system process) : 84 (QS system process) Pulse: 68 (QS system process) LaborFlag: OB Triage (QS system process) Datetime: 09/26/2016 21:46 NBP Sys/Gabrielle/Mean (mmHg): 119 (QS system process) : 56 (QS system process) : 83 (QS system process) Pulse: 70 (QS system process) LaborFlag: OB Triage (QS system process) Datetime: 09/26/2016 21:45 NBP Sys/Gabrielle/Mean (mmHg): 124 (QS system process) : 60 (QS system process) : 86 (QS system process) Pulse: 74 (QS system process) LaborFlag: OB Triage (QS system process) Datetime: 09/26/2016 21:44 NBP Sys/Gabrielle/Mean (mmHg): 128 (QS system process) : 58 (QS system process) : 84 (QS system process) Pulse: 75 (QS system process) LaborFlag: OB Triage (QS system process) Datetime: 09/26/2016 21:43 NBP Sys/Gabrielle/Mean (mmHg): 128 (QS system process) : 58 (QS system process) : 84 (QS system process) Pulse: 80 (QS system process) LaborFlag: OB Triage (QS system process) Datetime: 09/26/2016 21:41 NBP Sys/Gabrielle/Mean (mmHg): 132 (QS system process) : 62 (QS system process) : 89 (QS system process) Pulse: 86 (QS system process) LaborFlag: OB Triage (QS system process) Datetime: 09/26/2016 21:40 NBP Sys/Gabrielle/Mean (mmHg): 112 (QS system process) : 67 (QS system process) : 84 (QS system process) Pulse: 81 (QS system process) LaborFlag: OB Triage (QS system process) Datetime: 09/26/2016 21:39 Pulse: 79 (QS system process) SpO2 (%): 98 (QS system process) Epidural Procedure: Cath Placed; Loading Dose (Samuel BullockYAMILETH martínez) LaborFlag: OB Triage (QS system process) Datetime: 09/26/2016 21:38 NBP Sys/Gabrielle/Mean (mmHg): 131 (QS system process) : 72 (QS system process) : 94 (QS system process) Pulse: 80 (QS system process) Epidural Procedure: Test Dose (Samuel BlancoYAMILETH) LaborFlag: OB Triage (QS system process) Datetime: 09/26/2016 21:34 Pulse: 86 (QS system process) SpO2 (%): 98 (QS system process) LaborFlag: OB Triage (QS system process) Datetime: 09/26/2016 21:33 IV/Blood Work: New IV Bag Hung (Samuel Blanco, RN) Datetime: 09/26/2016 21:32 Epidural Positioning: Sitting (Samuel Blanco RN) Anesthesia Comments: sitting for epidural (Samuel Blanco, RN) Datetime: 09/26/2016 21:30 Monitor Mode: External (Samuel Blanco RN) Frequency (min): 2-3.5 (Samuel Blanco RN) Quality: Moderate to Strong (Samuel Francis, RN) Duration (sec): 50-70 (Samuel Francis, RN) Resting Tone (Palpate): Relaxed (Samuel Francis, RN) Monitor Mode: External US (Samuel Francis, RN) FHR Baseline Rate : 130 (Samuel Francis, RN) Variability: Moderate 6-25 bpm (Samuel Francis, RN) Accelerations: 15X15 (Samuel Francis, RN) Anesthesia Comments: Dr. Hilario at for epidural (Samuel Francis, RN) Datetime: 09/26/2016 21:00 Monitor Mode: External US (Samuel Francis, RN) FHR Baseline Rate : 135 (Samuel Francis, RN) Variability: Moderate 6-25 bpm (Samuel Francis, RN) Accelerations: 10X10 (Samuel Francis, RN) Datetime: 09/26/2016 20:52 IV/Blood Work: Labs Drawn (Liz Odin, RN) Datetime: 09/26/2016 20:50 Procedures: Consents Signed (Liz Gomezsel, RN) Datetime: 09/26/2016 20:46 IV/Blood Work: IV Started; IV Bolus Started (Liz Gomezsel, RN) Datetime: 09/26/2016 20:31 Dilatation (cm): 5.0 (Jessi Cruz RN) Exam by: Dr. Gilbert (Jessi Cruz RN) Communication Comments: Received orders to admit patient. Pt may have epidural when it is available. (Jessi Cruz RN) Datetime: 09/26/2016 20:30 Monitor Mode: External (Samuel Blanco RN) Frequency (min): 3-8 (Samuel Blanco RN) Quality: Mild (Samuel Blanco RN) Duration (sec): 40-70 (Samuel Blanco RN) Resting Tone (Palpate): Relaxed (Samuel Blanco RN) Monitor Mode: External US (Samuel Blanco, YAMILETH) FHR Baseline Rate : 135 (Samuel Blanco RN) Variability: Moderate 6-25 bpm (Samuel Blanco RN) Accelerations: 15X15 (Samuel Blanco RN)
[2016-09-27] MEDS: FERROUS SULFATE 325 MG TABLET PO SCH ×2 (09:17→17:51)
[2016-09-27] MEDS: SENNOSIDES/DOCUSATE 8.6-50 MG 1 EACH TABLET PO SCH (09:17)
[2016-09-27] MEDS: PRENATAL VITAMIN W-O CA NO5/FE FUMARATE/FA CAPSULE PO SCH (09:17)
[2016-09-27] MEDS: DOCUSATE SODIUM 100 MG CAPSULE PO SCH ×2 (09:18→17:51)
[2016-09-27] MEDS ORDERED: FAMOTIDINE 20 MG TABLET PO SCH (10:00)
[2016-09-27] MEDS ORDERED: METHADONE HCL PO SCH (10:00)
[2016-09-27 13:21] LABS: HEMATOCRIT 33.5 % (36.0-47.0); HEMOGLOBIN 11.3 g/dL (12.0-15.5); HGB HCT DIFFERENCE 0.4; MEAN CORPUSCULAR HEMOGLOBIN 31.5 pg (27.0-33.4); MEAN CORPUSCULAR HGB CONC 33.7 g/dL (32.0-36.0); MEAN CORPUSCULAR VOLUME 93 fl (80-97); RED BLOOD COUNT 3.59 10^6/uL (3.72-5.28); RED CELL DISTRIBUTION WIDTH 13.7 % (11.5-14.0); WHITE BLOOD COUNT 18.3 10^3/uL (4.0-10.5)
--- NOTE | 2016-09-27 18:01 | L&D Current Admission ---
Current Admit Datetime Report Generated by CPN: 09/27/2016 18:00 ADMISSION INFORMATION Current Admit Date/Time: 09/26/2016 20:30 (09/26/2016 20:30:Samuel Blanco RN) Reason for Admission: Other (09/26/2016 20:30:Samuel Blanco RN) Other Reason for Admission: Originally admitted for NST, Contractions every 4-5 minutes (09/26/2016 20:30:Samuel Blanco RN) Chief Complaint: abdominal pain, nausea/vomiting (09/12/2016 10:20:Milli Wood RN) Medications During : Methadone; Vitamin (09/26/2016 20:30:Samuel Blanco RN) EGA per Dates: 40.1 (09/26/2016 20:30:QS system process) Method of Arrival: Wheelchair (09/26/2016 20:30:Samuel Blanco RN) Admitted From: Dr. Office (09/26/2016 20:30:Samuel Blanco RN) Records Available: Yes (09/26/2016 20:30:Samuel Blanco RN) General Admission Information: Reviewed (09/26/2016 20:30:Samuel Blanco RN) BELONGINGS/ADVANCED DIRECTIVES Valuables/Personal Effects: Purse/Wallet; Cell Phone (09/26/2016 20:30:Samuel Blanco RN) Disposition of Belongings: Kept with Patient (09/26/2016 20:30:Samuel Blanco RN) Advance Direct for Healthcare: No, and Wants No Information (09/26/2016 20:30:Samuel Blanco RN) Durable Power of Nursing Techn: No (09/26/2016 20:30:Samuel Blanco RN) Living Will: No (09/26/2016 20:30:Samuel Blanco RN) Organ Donor: Yes (09/26/2016 20:30:Samuel Blanco RN) Pt Rights Information Given: Yes (09/26/2016 20:30:Samuel Blanco RN) Pt Understands Pt Rights: Yes (09/26/2016 20:30:Samuel Blanco RN) LEARNING ASSESSMENT Knowledge Level: Understands L_D Process; Understands Care Activities; Understands Diagnosis (09/26/2016 20:30:Samuel Blanco RN) Barriers to Learning: None (09/26/2016 20:30:Samuel Blanco RN) Learning Readiness: Motivated (09/26/2016 20:30:Samuel Blanco RN) Learns Best By: 1 to 1 Instruction; Demonstration (09/26/2016 20:30:Samuel Blanco RN) Learning Needs: Labor and Delivery Process; Pain Management; Symptoms to Report; Treatment Plan; Medication; Diagnosis; Nutrition; Equipment; Infant Care; Community Resources (09/26/2016 20:30:Samuel Blanco RN) DOMESTIC VIOLANCE SCREENING Dom Viol Threatened/Hurt: No (09/26/2016 20:30:Samuel Blanco RN) Hx of Abuse/Neglect past 2yrs: No (09/26/2016 20:30:Samuel Blanco RN) Feel Unsafe Going Home: No (09/26/2016 20:30:Samuel Blanco RN) Addt'l Observ Indicating Abuse: No (09/26/2016 20:30:Samuel Blanco RN) Considered Personal Harm/Suicide: No (09/26/2016 20:30:Samuel Blanco RN) NUTRITIONAL/FUNCTIONAL SCREENING Problem with Appetite >5 Days: No (09/26/2016 20:30:Samuel Blanco RN) Chew/Swallow Difficulties: No (09/26/2016 20:30:Samuel Blanco RN) Inappropriate Wt Gain/Loss: No (09/26/2016 20:30:Samuel Blanco RN) Presence Skin Breakdown/Ulcer: No (09/26/2016 20:30:Samuel Blanco RN) Special Diet: No (09/26/2016 20:30:Samuel Blanco RN) Pt Requests Rivet Driver Visit: No (09/26/2016 20:30:Samuel Blanco RN) Hx of Any of the Following?: N/A (09/26/2016 20:30:Samuel Blanco RN) New Diagnosis of: N/A (09/26/2016 20:30:Samuel Blanco RN) Requires Assist w/Ambulation: No (09/26/2016 20:30:Samuel Blanco RN) Uses Assist Device to Ambulate: No (09/26/2016 20:30:Samuel Blanco RN) Pt Requires Help w/ADL's: No (09/26/2016 20:30:Samuel Blanco RN)
--- NOTE | 2016-09-27 18:01 | L&D General Admission ---
General Admit Datetime Report Generated by CPN: 09/27/2016 18:00 INFORMATION Patient Age: 25 (12/11/2015 10:25:QS system process) EDC: 09/25/2016 00:00 (08/05/2016 13:55:Milli Wood RN) : 2 (08/05/2016 13:55:Milli Wood RN) Para: 1 (08/16/2016 21:39:Annabel Jennings RN) Term: 1 (08/05/2016 13:55:Jessi Cruz RN) : 0 (08/05/2016 13:55:Jessi Cruz RN) Spontaneous Abortions: 0 (08/05/2016 13:55:Jessi Cruz RN) Induced Abortions: 0 (08/05/2016 13:55:Jessi Cruz RN) Livin (08/05/2016 13:55:Jessi Cruz RN) Cesareans: 0 (08/05/2016 13:55:Jessi Cruz RN) VBACs: 0 (08/05/2016 13:55:Jessi Cruz RN) Ectopic: 0 (08/05/2016 13:55:Jessi Cruz RN) Multiple Births: 0 (08/05/2016 13:55:Jessi Cruz RN) Baby, Number in Womb: 1 (08/16/2016 21:39:Annabel Jennings RN) CARE Primary Supervisor Polishing: [facility] (08/05/2016 13:55:Milli Wood RN) Month of 1st Visit: February (08/05/2016 13:55:Milli Wood RN) Adequate Care: Yes (08/05/2016 13:55:Milli Wood RN) Height (in): 61 (09/12/2016 11:30:QS system process) ALLERGIES Medication Allergy: No (08/05/2016 13:55:Milli Wood RN) Medication Allergies: No Known Allergies (09/12/2016) (09/12/2016 10:12:QS system process) Latex Allergy: No Latex Allergies (08/05/2016 13:55:Milli Wood RN) Food Allergies: denies (08/05/2016 13:55:Milli Wood RN) Environmental Allergies: denies (08/05/2016 13:55:Milli Wood RN) COMMUNICATION Primary Language: Rwandan (08/05/2016 13:55:Milli Wood RN) Medical Tx Preferred Language: Rwandan (08/05/2016 13:55:Milli Wood RN) DEMOGRAPHICS Address: [address] [place], [place] [address] [address] [place] [address] (08/05/2016 14:07:QS system process) Zipcode: [address] (08/05/2016 14:07:QS system process) Home (12/11/2015 10:25:QS system process) SSN: [id number] (12/11/2015 10:25:QS system process) Next of Kin Name: AMANDA GUTIERREZ (12/11/2015 10:25:QS system process) Next of Kin (08/05/2016 14:07:QS system process) Next of Kin Relationship: OR (12/11/2015 10:25:QS system process) Date of : 1990 (12/11/2015 10:25:QS system process) Marital Status: Single (12/11/2015 10:25:QS system process) Sex: Female (12/11/2015 10:25:QS system process) Race: (12/11/2015 10:25:QS system process) Ethnicity: Non- or (12/11/2015 10:25:QS system process) Church: None (12/11/2015 10:25:QS system process) DRUG AND ALCOHOL USE Alcohol: No (08/05/2016 13:55:Milli Wood RN) Cigarettes: Current Some Day Smoker. [id number] (08/05/2016 13:55:Milli Wood RN) Average Cigarettes Smoked: 5 - 10 per day (08/05/2016 13:55:Samuel Blanco RN) Cigarette Comments: 1/2 Pack a day (08/05/2016 13:55:Samuel Blanco RN) Marijuana: No (08/05/2016 13:55:Milli Wood RN) Cocaine: No (08/05/2016 13:55:Milli Wood RN) Other Illicit Drugs: No (08/05/2016 13:55:Milli Wood RN) VACCINE HISTORY Influenza Vaccine: No (08/05/2016 13:55:Milli Wood RN) Pneumococcal Vaccine: No (08/05/2016 13:55:Milli Wood RN) Tetanus Vaccine: No (08/05/2016 13:55:Milli Wood RN) Tdap Vaccine: Yes (08/05/2016 13:55:Milli Wood RN) Hepatitis B Vaccine: Yes (08/05/2016 13:55:Milli Wood RN) Marketing Programs Specialist: [facility] (08/05/2016 13:55:Milli Wood RN) Feeding Preference: Both (08/05/2016 13:55:Samuel Blanco RN) Benefit of Breast Feed Discussed: Yes (08/05/2016 13:55:Milli Wood RN) Circumcision: Yes (08/05/2016 13:55:Milli Wood RN) Classes Attended: No (08/05/2016 13:55:Milli Wood RN) Tubal Ligation: No (08/05/2016 13:55:Milli Wood RN) Tubal Authorization Signed: N/A (08/05/2016 13:55:Milli Wood RN) Consent: N/A (08/05/2016 13:55:Milli Wood RN) Consent Signed: N/A (08/05/2016 13:55:Milli Wood RN) Pain Management Plans: Epidural (08/05/2016 13:55:Milli Wood RN) Plans for Labor and Delivery: None (08/05/2016 13:55:Milli Wood RN) Support Person: Amanda Guteirrez (08/05/2016 13:55:Milli Wood RN) Support Person Relationship: Significant Other (08/05/2016 13:55:Milli Wood RN) Cultural/Spritual Practice: No (08/05/2016 13:55:Milli Wood RN) Spir/Cult Dietary Needs: No (08/05/2016 13:55:Milli Wood RN) LIVING SITUATION/DISCHARGE PLAN Living Arrangements: House (08/05/2016 13:55:Milli Wood RN) Adequate Access to:: Electric; Heat; Refrigeration; Plumbing/Running water; Phone; Transportation (08/05/2016 13:55:Milli Wood RN) WIC Program: Yes (08/05/2016 13:55:Milli Wood RN) Discharge Children'S Ministry Director Person: Amnada Gutierrez (08/05/2016 13:55:Milli Wood RN) Person to Help after Discharge: Amanda Gutierrez (08/05/2016 13:55:Milli Wood RN) Currently Using Commun Resources: N/A (08/05/2016 13:55:Milli Wood RN) Outside Agency/Trading Floor Operator: N/A (08/05/2016 13:55:Milli Wood RN) Car Seat for Discharge: Yes (08/05/2016 13:55:Milli Wood RN) Adoption Requested: No (08/05/2016 13:55:Milli Wood RN) Pt Contact w/ Post : N/A (08/05/2016 13:55:Milli Wood RN) LABS Blood Type: O Positive (08/05/2016 13:55:Milli Wood RN) Antibody Screen: negative (08/05/2016 13:55:Milli Wood RN) Rho(G) this : Not Applicable (08/05/2016 13:55:Jessi Cruz RN) Hemoglobin: 11.3 L (09/27/2016 13:14:QS system process) Hematocrit: 33.5 L (09/27/2016 13:14:QS system process) MCV: 93 (09/27/2016 13:14:QS system process) Group Beta Strep: Negative (08/05/2016 13:55:Samuel Blanco RN) Gonorrhea: Negative (08/05/2016 13:55:Milli Wood RN) Chlamydia: Negative (08/05/2016 13:55:Milli Wood RN) RPR/VDRL: Nonreactive (08/05/2016 13:55:Milli Wood RN) Hepatitis B: Negative (08/05/2016 13:55:Milli Wood RN) Rubella: Immune (08/05/2016 13:55:Milli Wood RN) OB/PREVIOUS HISTORY Previous Procedures: Ultrasound; NST (08/05/2016 13:55:Milli Wood RN) Current Procedures: Ultrasound; NST (08/05/2016 13:55:Milli Wood RN) History of Gestational Diabetes: No (08/05/2016 13:55:Milli Wood RN) History of PIH: No (08/05/2016 13:55:Milli Wood RN) History of Incompetent Cervix: No (08/05/2016 13:55:Milli Wood RN) History of Placenta Previa/Abrup: No (08/05/2016 13:55:Milli Wood RN) History of Macrosomia: No (08/05/2016 13:55:Milli Wood RN) History of IUGR: No (08/05/2016 13:55:Milli Wood RN) History of Hemorrhage: No (08/05/2016 13:55:Milli Wood RN) History of Loss/Stillborn: No (08/05/2016 13:55:Milli Wood RN) History of : No (08/05/2016 13:55:Milli Wood RN) History of D (Rh) Sensitization: No (08/05/2016 13:55:Milli Wood RN) History Recurrent Loss/Stillborn: No (08/05/2016 13:55:Milli Wood RN) History Depression/PP Depression: No (08/05/2016 13:55:Milli Wood RN) History of Uterine Anomaly/NITHYA: No (08/05/2016 13:55:Milli Wood RN) History of Infertility: No (08/05/2016 13:55:Milli Wood RN) History of ART Treatment: No (08/05/2016 13:55:Milli Wood RN) History of NITHYA: No (08/05/2016 13:55:Milli Wood RN) Comments Obstetrical History: G1: 2012 G2: current (08/05/2016 13:55:Milli Wood RN) MEDICAL HISTORY Med Hx Diabetes: No (08/05/2016 13:55:Milli Wood RN) Med Hx Hypertension: No (08/05/2016 13:55:Milli Wood RN) Med Hx Heart Disease: No (08/05/2016 13:55:Milli Wood RN) Med Hx Autoimmune Disorder: No (08/05/2016 13:55:Milli Wood RN) Med Hx Kidney Disease/UTI: No (08/05/2016 13:55:Milli Wood RN) Med Hx Neurologic/Epilepsy: No (08/05/2016 13:55:Milli Wood RN) Med Hx Psychiatric Disorders: No (08/05/2016 13:55:Milli Wood RN) Med Hx Hepatitis/Liver Disease: No (08/05/2016 13:55:Milli Wood RN) Med Hx Varicosities/Phlebitis: No (08/05/2016 13:55:Milli Wood RN) Med Hx Thyroid Dysfunction: No (08/05/2016 13:55:Milli Wood RN) Med Hx Trauma/Violence: No (08/05/2016 13:55:Milli Wood RN) Med Hx Blood Transfusion: No (08/05/2016 13:55:Milli Wood RN) Med Hx Pulmonary (Asthma,TB): No (08/05/2016 13:55:Milli Wood RN) Med Hx COMPUTER HARDWARE DEVELOPER Surgery: No (08/05/2016 13:55:Milli Wood RN) Med Hx Hospitalization/Surgery: Yes (08/05/2016 13:55:Milli Wood RN) Med Hx Anesthetic Complications: No (08/05/2016 13:55:Milli Wood RN) Med Hx Abnormal Pap Smear: No (08/05/2016 13:55:Milli Wood RN) Other Medical Diseases: No (08/05/2016 13:55:Milli Wood RN) Med Hx Significant Family Hx: No (08/05/2016 13:55:Milli Wood RN) INFECTIOUS HISTORY Inf Hx Gonorrhea: No (08/05/2016 13:55:Milli Wood RN) Inf Hx Chlamydia: No (08/05/2016 13:55:Milli Wood RN) Inf Hx Syphilis: No (08/05/2016 13:55:Milli Wood RN) Inf Hx HIV/AIDS: No (08/05/2016 13:55:Milli Wood RN) Inf Hx Human Papilloma Virus: No (08/05/2016 13:55:Milli Wood RN) Inf Hx Pt/Partner Genital Herpes: No (08/05/2016 13:55:Milli Wood RN) GENETIC HISTORY Gen Hx Age >=35 at ROSALIE: No (08/05/2016 13:55:Milli Wood RN) Gen Hx Thalassemia: No (08/05/2016 13:55:Milli Wood RN) Gen Hx Congenital Heart Defect: No (08/05/2016 13:55:Milli Wood RN) Gen Hx Neural Tube Defect: No (08/05/2016 13:55:Milli Wood RN) Gen Hx Down's Syndrome: No (08/05/2016 13:55:Milli Wood RN) Gen Hx Emeterio-Sachs: No (08/05/2016 13:55:Milli Wood RN) Gen Hx Isidro: No (08/05/2016 13:55:Milil Wood RN) Gen Hx Familial Dysautonomia: No (08/05/2016 13:55:Milli Wood RN) Gen Hx Sickle Cell Disease/Trait: No (08/05/2016 13:55:Milli Wood RN) Gen Hx Hemophilia/Blood Disorder: No (08/05/2016 13:55:Milli Wood RN) Gen Hx Muscular Dystrophy: No (08/05/2016 13:55:Milli Wood RN) Gen Hx Cystic Fibrosis: No (08/05/2016 13:55:Milli Wood RN) Gen Hx Huntingtons Chorea: No (08/05/2016 13:55:Milli Wood RN) Gen Hx Mental Retardation/Autism: No (08/05/2016 13:55:Milli Wood RN) Gen Hx Tested for Fragile X: No (08/05/2016 13:55:Milli Wood RN) Gen Hx Other Inher/Chromosomal: No (08/05/2016 13:55:Milli Wood RN) Gen Hx Maternal Metabolic DO: No (08/05/2016 13:55:Milli Wood RN) Gen Hx Pt Father or FOB Defect: No (08/05/2016 13:55:Milli Wood RN) Gen Hx Other Genetic History: No (08/05/2016 13:55:Milli Wood RN) Gen Hx Drugs/Meds since LMP: No (08/05/2016 13:55:Milli Wood RN) Gen Hx Medications: methadone 75 mg daily, daily (08/05/2016 13:55:Milli Wood RN)
--- NOTE | 2016-09-27 18:15 | L&D Care Plan ---
LD CARE PLANS Datetime Report Generated by CPN: 09/27/2016 18:15 Datetime: 09/26/2016 20:44 Pain State: Actual (Tila Duran RN) Related To: Labor and Delivery Process (Tila Duran RN) Goal(s): Patients Pain will be Assessed and Managed; Patient will Verbalize Adequate Relief of Pain or the Ability to Breeding with Current Pain (Tila Duran RN) Interventions: Assess Pain Severity on Scale of 0 (None) to 5 (Severe); Assess Type, Location and Intensity of Pain Each Time Client Reports Discomfort and Notify Provider if Unusal Pain Develops; Encourage Proper Breathing and Relaxation Techniques; Offer Alternatives Such as Repositioning, Calm Environment, Massages, Diversional Activities, Ice Pack, Splinting, and Ambulation; Administer Analgesics as Ordered; Assist with Epidural Placement as Appropriate; Evaluate Therapeutic Effectiveness of Medication and Treatments (Tila Duran RN) Outcome: Patient will Report Absence or Relief of Pain Consistent with Established Pain Goal (Tial Duran RN) Status: Ongoing (Tila Duran RN) Outcome: Patient will have a Decrease in Signs and Symptoms of Discomfort (Tila Duran RN) Status: Ongoing (Tila Duran RN) Outcome: Pain will be Controlled During Procedures (Tila Duran RN) Status: Ongoing (Tila Duran RN) Anxiety State: Risk For (Tila Duran RN) Related To: Medical Interventions; Significant Life Event (Tila Durna RN) Goal(s): Patient will have Decreased Anxiety and be able to Function at Acceptable Levels (Tila Duran RN) Interventions: Assess Verbal and Nonverbal Behavioral Indicators of Anxiety; Assist Patient to Identify and Verbalize Symptoms of Anxiety; Identify and Demonstrate Techniques to Control Anxiety; Assist Patient with Coping Mechanisms to Manage Anxiety; Provide Theraputic Touch for the Patient; Explain to Patient, Using a Calm Reassuring Approach and Nonmedical Terms, All Activities, Procedures, and Concerns; Instruct Patient and Family about Post Discharge Care, Limitations, Symptoms to Report and Resources Available (Tila Duran RN) Outcome: Patient will Identify, Verbalize and Demonstrate Techniques to Control Anxiety (Tila Duran RN) Status: Ongoing (Tila Duran RN) Outcome: Patient's Posture, Facial Expressions, Gestures and Activity Level will Reflect Decreased Anxiety (Tila Duran RN) Status: Ongoing (Tila Duran RN) Outcome: Patient will Verbalize a Sense of Control and/or Acceptance of the Situation (Tila Duran RN) Status: Ongoing (Tila Duran RN) Outcome: Patient will Identify and Utilize Support Person (Tila Duran RN) Status: Ongoing (Tila Duran RN) Knowledge Deficit State: Not Applicable (Tila Duran RN) Infection State: Risk For (Tila Duran RN) Related To: Invasive Procedures (Tila Duran RN) Goal(s): The Patient will be Free of Infection, Vital Signs Stable and Lab Work within Normal Parameters (Tila Duran RN) Interventions: Instruct and Reinforce Proper Handwashing, Hygiene, and Care Techniques to Patient and Family; Monitor Vital Signs; Monitor Patient for the Following Signs of Infection: Fever, Abdominal Tenderness, Unusual Discharge; Monitor Aminiotic Fluid, Urine and Lochia for Color and Odor; Observe Wounds, Incisions and Invasive Line Sites for Redness, Drainage and Edema; Assess IV Sites per Hospital Policy; Monitor Lab and Test Results and Notify Provider of Abnormal Findings; Assess Nutritional Status and Promote Good Nutrition (Tila Duran RN) Outcome: Patient will Remain Free of Infection (Tila Duran RN) Status: Ongoing (Tila Duran RN) Outcome: Infection will be Recognized Early to Allow for Prompt Treatment (Tila Duran RN) Status: Ongoing (Tila Duran RN) Outcome: Patient will have Vital Signs Within Expected Range (Tila Duran RN) Status: Ongoing (Tila Duran RN) Fluid Volume State: Not Applicable (Tila Duran RN) Injury State: Risk For (Tila Duran RN) Related To: Labor and Delivery Process (Tila Duran RN) Goal(s): Patient will Remain Free from Injury (Tila Duran RN) Interventions: Monitoring as per Hospital Protocol; Assess Neurological Status; Perform Risk Assessment of Patients with Induction and ; Perform Fall Risk Assessment and Prevention per Hospital Protocol; Perform DVT Risk Assessment and Prophylaxis per Hospital Protocol; Ensure that Oxygen, Suction, and Resuscitation Medications and Equipment are Readily Available; Confirm Patient ID Prior to Procedure(s) and Medication Administration per Hospital Policy (Tila Duran RN) Outcome: Successful Fall Risk Prevention (Tila Duran RN) Status: Ongoing (Tila Duran RN) Outcome: Patient will Deliver Infant without Adverse Sequela (Tila Duran RN) Status: Ongoing (Tila Duran RN) Outcome: Patient's Neurological Status will Remain Stable (Tila Duran RN) Status: Ongoing (Tila Duran RN) Impaired Skin Integrity State: Risk For (Tila Duran RN) Related To: Vaginal Delivery (Tila Duran RN) Goal(s): Patient will Maintain Optimal Skin Integrity, Free of Breakdown, Injury or Infection (Tila Duran RN) Interventions: Complete Screening for Pressure Ulcer Risk and Initiate Protocol per Hospital Policy; Monitor Site of Skin Impairment for Color Changes, Redness, Swelling, Warmth, Pain or Other Signs of Infection; Encourage and Assist with Position Changes; Monitor Patient's Mobility Status; Provide Adequate Nutrition and Fluids; Teach Patient Appropriate Hygienic Care; Teach Patient/Family Skin Care Management (Tila Duran RN) Outcome: Patient will not have Evidence of Injury Such as Skin Breakdown, Scrapes, Cuts, or Bruising (Tila Duran RN) Status: Ongoing (Tila Duran RN) Outcome: Patient will Report Any Altered Sensation or Pain at Site of Skin Impairment (Tila Duran RN) Status: Ongoing (Tila Duran RN) Outcome: Patients Incisions and Wounds will be without Signs or Symptoms of Infection (Tila Vitrano, RN) Status: Ongoing (Tila Vitrano, RN) Outcome: Patient will Demonstrate Understanding of Plan to Heal Skin and Prevent Reinjury and Verbalize Risk Factors (Tila Vitrano, RN) Status: Ongoing (Tila Vitrano, RN) Parenting Impaired State: Not Applicable (Tila Vitrano, RN) Nutrition State: Not Applicable (Tila Vitrano, RN) Grieving State: Not Applicable (Tila Vitrano, RN) Additional Care Plan State: Actual (Jessi Cruz RN) Nursing Diagnosis or r/t: (Jessi Cruz RN) Goal(s): Patient will breastfeed infant at least 8 times in 24 hours. (Jessi Cruz RN) Interventions: Ensure patient has the support needed to breastfeed . (Jessi Cruz RN) Outcome Status: Ongoing (Jessi Cruz RN) Datetime: 09/26/2016:43 Pain State: Actual (Tila Duran RN) Related To: Labor and Delivery Process (Tila Duran RN) Goal(s): Patients Pain will be Assessed and Managed; Patient will Verbalize Adequate Relief of Pain or the Ability to Breeding with Current Pain (Tila Duran RN) Interventions: Assess Pain Severity on Scale of 0 (None) to 5 (Severe); Assess Type, Location and Intensity of Pain Each Time Client Reports Discomfort and Notify Provider if Unusal Pain Develops; Encourage Proper Breathing and Relaxation Techniques; Offer Alternatives Such as Repositioning, Calm Environment, Massages, Diversional Activities, Ice Pack, Splinting, and Ambulation; Administer Analgesics as Ordered; Assist with Epidural Placement as Appropriate; Evaluate Therapeutic Effectiveness of Medication and Treatments (Tila Duran RN) Outcome: Patient will Report Absence or Relief of Pain Consistent with Established Pain Goal (Tila Duran RN) Status: Ongoing (Tila Duran RN) Outcome: Patient will have a Decrease in Signs and Symptoms of Discomfort (Tila Duran RN) Status: Ongoing (Tila Duran RN) Outcome: Pain will be Controlled During Procedures (Tila Duran RN) Status: Ongoing (Tila Duran RN) Anxiety State: Risk For (Tila Duran RN) Related To: Medical Interventions; Significant Life Event (Tila Duran RN) Goal(s): Patient will have Decreased Anxiety and be able to Function at Acceptable Levels (Tila Duran RN) Interventions: Assess Verbal and Nonverbal Behavioral Indicators of Anxiety; Assist Patient to Identify and Verbalize Symptoms of Anxiety; Identify and Demonstrate Techniques to Control Anxiety; Assist Patient with Coping Mechanisms to Manage Anxiety; Provide Theraputic Touch for the Patient; Explain to Patient, Using a Calm Reassuring Approach and Nonmedical Terms, All Activities, Procedures, and Concerns; Instruct Patient and Family about Post Discharge Care, Limitations, Symptoms to Report and Resources Available (Tila Duran RN) Outcome: Patient will Identify, Verbalize and Demonstrate Techniques to Control Anxiety (Tila Duran RN) Status: Ongoing (Tila Duran RN) Outcome: Patient's Posture, Facial Expressions, Gestures and Activity Level will Reflect Decreased Anxiety (Tila Duran RN) Status: Ongoing (Tila Duran RN) Outcome: Patient will Verbalize a Sense of Control and/or Acceptance of the Situation (Tila Duran RN) Status: Ongoing (Tila Duran RN) Outcome: Patient will Identify and Utilize Support Person (Tila Duran RN) Status: Ongoing (Tila Duran RN) Knowledge Deficit State: Not Applicable (Tila Duran RN) Infection State: Risk For (Tila Duran RN) Related To: Invasive Procedures (Tila Duran RN) Goal(s): The Patient will be Free of Infection, Vital Signs Stable and Lab Work within Normal Parameters (Tila Duran RN) Interventions: Instruct and Reinforce Proper Handwashing, Hygiene, and Care Techniques to Patient and Family; Monitor Vital Signs; Monitor Patient for the Following Signs of Infection: Fever, Abdominal Tenderness, Unusual Discharge; Monitor Aminiotic Fluid, Urine and Lochia for Color and Odor; Observe Wounds, Incisions and Invasive Line Sites for Redness, Drainage and Edema; Assess IV Sites per Hospital Policy; Monitor Lab and Test Results and Notify Provider of Abnormal Findings; Assess Nutritional Status and Promote Good Nutrition (Tila Duran RN) Outcome: Patient will Remain Free of Infection (Tila Duran RN) Status: Ongoing (Tila Duran RN) Outcome: Infection will be Recognized Early to Allow for Prompt Treatment (Tila Duran RN) Status: Ongoing (Tila Duran RN) Outcome: Patient will have Vital Signs Within Expected Range (Tila Duran RN) Status: Ongoing (Tila Duran RN) Fluid Volume State: Not Applicable (Tila Duran RN) Injury State: Risk For (Tila Duran RN) Related To: Labor and Delivery Process (Tila Duran RN) Goal(s): Patient will Remain Free from Injury (Tila Duran RN) Interventions: Monitoring as per Hospital Protocol; Assess Neurological Status; Perform Risk Assessment of Patients with Induction and ; Perform Fall Risk Assessment and Prevention per Hospital Protocol; Perform DVT Risk Assessment and Prophylaxis per Hospital Protocol; Ensure that Oxygen, Suction, and Resuscitation Medications and Equipment are Readily Available; Confirm Patient ID Prior to Procedure(s) and Medication Administration per Hospital Policy (Tila Duran RN) Outcome: Successful Fall Risk Prevention (Tila Duran RN) Status: Ongoing (Tila Duran RN) Outcome: Patient will Deliver without Adverse Sequela (Tila Duran RN) Status: Ongoing (Tila Duran RN) Outcome: Patient's Neurological Status will Remain Stable (Tila Duran RN) Status: Ongoing (Tila Duran RN) Impaired Skin Integrity State: Risk For (Tila Duran RN) Related To: Vaginal Delivery (Tila Duran RN) Goal(s): Patient will Maintain Optimal Skin Integrity, Free of Breakdown, Injury or Infection (Tila Duran RN) Interventions: Complete Screening for Pressure Ulcer Risk and Initiate Protocol per Hospital Policy; Monitor Site of Skin Impairment for Color Changes, Redness, Swelling, Warmth, Pain or Other Signs of Infection; Encourage and Assist with Position Changes; Monitor Patient's Mobility Status; Provide Adequate Nutrition and Fluids; Teach Patient Appropriate Hygienic Care; Teach Patient/Family Skin Care Management (Tila Duran RN) Outcome: Patient will not have Evidence of Injury Such as Skin Breakdown, Scrapes, Cuts, or Bruising (Tila Duran RN) Status: Ongoing (Tila Duran RN) Outcome: Patient will Report Any Altered Sensation or Pain at Site of Skin Impairment (Tila Duran RN) Status: Ongoing (Tila Duran RN) Outcome: Patients Incisions and Wounds will be without Signs or Symptoms of Infection (Tila Duran RN) Status: Ongoing (Tila Duran RN) Outcome: Patient will Demonstrate Understanding of Plan to Heal Skin and Prevent Reinjury and Verbalize Risk Factors (Tila Duran RN) Status: Ongoing (Tila Duran RN) Parenting Impaired State: Not Applicable (Tila Vitrano, RN) Nutrition State: Not Applicable (Tila Vitrano, RN) Grieving State: Not Applicable (Tila Vitrano, RN) Additional Care Plan State: Not Applicable (Tila Vitrano, RN)
--- NOTE | 2016-09-28 06:00 | L&D General Admission ---
General Admit Datetime Report Generated by CPN: 09/28/2016 06:00 INFORMATION Patient Age: 25 (12/11/2015 10:25:QS system process) EDC: 09/25/2016 00:00 (08/05/2016 13:55:Milli Wood RN) : 2 (08/05/2016 13:55:Milli Wood RN) Para: 1 (08/16/2016 21:39:Annabel Jennings RN) Term: 1 (08/05/2016 13:55:Jessi Cruz RN) : 0 (08/05/2016 13:55:Jessi Cruz RN) Spontaneous Abortions: 0 (08/05/2016 13:55:Jessi Cruz RN) Induced Abortions: 0 (08/05/2016 13:55:Jessi Cruz RN) Livin (08/05/2016 13:55:Jessi Cruz RN) Cesareans: 0 (08/05/2016 13:55:Jessi Cruz RN) VBACs: 0 (08/05/2016 13:55:Jessi Cruz RN) Ectopic: 0 (08/05/2016 13:55:Jessi Cruz RN) Multiple Births: 0 (08/05/2016 13:55:Jessi Cruz RN) Baby, Number in Womb: 1 (08/16/2016 21:39:Annabel Jennings RN) CARE Primary Typing Teacher: [facility] (08/05/2016 13:55:Milli Wood RN) Month of 1st Visit: February (08/05/2016 13:55:Milli Wood RN) Adequate Care: Yes (08/05/2016 13:55:Milli Wood RN) Height (in): 61 (09/12/2016 11:30:QS system process) ALLERGIES Medication Allergy: No (08/05/2016 13:55:Milli Wood RN) Medication Allergies: No Known Allergies (09/12/2016) (09/12/2016 10:12:QS system process) Latex Allergy: No Latex Allergies (08/05/2016 13:55:Milli Wood RN) Food Allergies: denies (08/05/2016 13:55:Milli Wood RN) Environmental Allergies: denies (08/05/2016 13:55:Milli Wood RN) COMMUNICATION Primary Language: Russian (08/05/2016 13:55:Milli Wood RN) Medical Tx Preferred Language: Russian (08/05/2016 13:55:Milli Wood RN) DEMOGRAPHICS Address: [address] [place], [place] [address] [address] [place] [address] (08/05/2016 14:07:QS system process) Zipcode: [address] (08/05/2016 14:07:QS system process) Home (12/11/2015 10:25:QS system process) SSN: [id number] (12/11/2015 10:25:QS system process) Next of Kin Name: AMANDA GUTIERREZ (12/11/2015 10:25:QS system process) Next of Kin (08/05/2016 14:07:QS system process) Next of Kin Relationship: OR (12/11/2015 10:25:QS system process) Date of : 1990 (12/11/2015 10:25:QS system process) Marital Status: Single (12/11/2015 10:25:QS system process) Sex: Female (12/11/2015 10:25:QS system process) Race: (12/11/2015 10:25:QS system process) Ethnicity: Non- or (12/11/2015 10:25:QS system process) Rastafari: None (12/11/2015 10:25:QS system process) DRUG AND ALCOHOL USE Alcohol: No (08/05/2016 13:55:Milli Wood RN) Cigarettes: Current Some Day Smoker. [id number] (08/05/2016 13:55:Milli Wood RN) Average Cigarettes Smoked: 5 - 10 per day (08/05/2016 13:55:Samuel Blanco RN) Cigarette Comments: 1/2 Pack a day (08/05/2016 13:55:Samuel Blanco RN) Marijuana: No (08/05/2016 13:55:Milli Wood RN) Cocaine: No (08/05/2016 13:55:Milli Wood RN) Other Illicit Drugs: No (08/05/2016 13:55:Milli Wood RN) VACCINE HISTORY Influenza Vaccine: No (08/05/2016 13:55:Milli Wood RN) Pneumococcal Vaccine: No (08/05/2016 13:55:Milli Wood RN) Tetanus Vaccine: No (08/05/2016 13:55:Milli Wood RN) Tdap Vaccine: Yes (08/05/2016 13:55:Milli Wood RN) Hepatitis B Vaccine: Yes (08/05/2016 13:55:Milli Wood RN) Independent Crop Consultant: [facility] (08/05/2016 13:55:Milli Wood RN) Feeding Preference: Both (08/05/2016 13:55:Samuel Blanco RN) Benefit of Breast Feed Discussed: Yes (08/05/2016 13:55:Milli Wood RN) Circumcision: Yes (08/05/2016 13:55:Milli Wood RN) Classes Attended: No (08/05/2016 13:55:Milli Wood RN) Tubal Ligation: No (08/05/2016 13:55:Milli Wood RN) Tubal Authorization Signed: N/A (08/05/2016 13:55:Milli Wood RN) Consent: N/A (08/05/2016 13:55:Milli Wood RN) Consent Signed: N/A (08/05/2016 13:55:Milli Wood RN) Pain Management Plans: Epidural (08/05/2016 13:55:Milli Wood RN) Plans for Labor and Delivery: None (08/05/2016 13:55:Milli Wood RN) Support Person: Amanda Gutierrez (08/05/2016 13:55:Milli Wood RN) Support Person Relationship: Significant Other (08/05/2016 13:55:Milli Wood RN) Cultural/Spritual Practice: No (08/05/2016 13:55:Milli Wood RN) Spir/Cult Dietary Needs: No (08/05/2016 13:55:Milli Wood RN) LIVING SITUATION/DISCHARGE PLAN Living Arrangements: House (08/05/2016 13:55:Milli Wood RN) Adequate Access to:: Electric; Heat; Refrigeration; Plumbing/Running water; Phone; Transportation (08/05/2016 13:55:Milli Wood RN) WIC Program: Yes (08/05/2016 13:55:Milli Wood RN) Discharge Anodic Operator Person: Amanda Gutierrez (08/05/2016 13:55:Milli Wood RN) Person to Help after Discharge: Amanda Gutierrez (08/05/2016 13:55:Milli Wood RN) Currently Using Commun Resources: N/A (08/05/2016 13:55:Milli Wood RN) Outside Agency/Senior Technical Editor: N/A (08/05/2016 13:55:Milli Wood RN) Car Seat for Discharge: Yes (08/05/2016 13:55:Milli Wood RN) Adoption Requested: No (08/05/2016 13:55:Milli Wood RN) Pt Contact w/ Post : N/A (08/05/2016 13:55:Milli Wood RN) LABS Blood Type: O Positive (08/05/2016 13:55:Milli Wood RN) Antibody Screen: negative (08/05/2016 13:55:Milli Wood RN) Rho(G) this : Not Applicable (08/05/2016 13:55:Jessi Cruz RN) Hemoglobin: 11.3 L (09/27/2016 13:14:QS system process) Hematocrit: 33.5 L (09/27/2016 13:14:QS system process) MCV: 93 (09/27/2016 13:14:QS system process) Group Beta Strep: Negative (08/05/2016 13:55:Samuel Blanco RN) Gonorrhea: Negative (08/05/2016 13:55:Milli Wood RN) Chlamydia: Negative (08/05/2016 13:55:Milli Wood RN) RPR/VDRL: Nonreactive (08/05/2016 13:55:Milli Wood RN) Hepatitis B: Negative (08/05/2016 13:55:Milli Wood RN) Rubella: Immune (08/05/2016 13:55:Milli Wood RN) OB/PREVIOUS HISTORY Previous Procedures: Ultrasound; NST (08/05/2016 13:55:Milli Wood RN) Current Procedures: Ultrasound; NST (08/05/2016 13:55:Milli Wood RN) History of Gestational Diabetes: No (08/05/2016 13:55:Milli Wood RN) History of PIH: No (08/05/2016 13:55:Milli Wood RN) History of Incompetent Cervix: No (08/05/2016 13:55:Milli Wood RN) History of Placenta Previa/Abrup: No (08/05/2016 13:55:Milli Wood RN) History of Macrosomia: No (08/05/2016 13:55:Milli Wood RN) History of IUGR: No (08/05/2016 13:55:Milli Wood RN) History of Hemorrhage: No (08/05/2016 13:55:Milli Wood RN) History of Loss/Stillborn: No (08/05/2016 13:55:Milli Wood RN) History of : No (08/05/2016 13:55:Milli Wood RN) History of D (Rh) Sensitization: No (08/05/2016 13:55:Milli Wood RN) History Recurrent Loss/Stillborn: No (08/05/2016 13:55:Milli Wood RN) History Depression/PP Depression: No (08/05/2016 13:55:Milli Wood RN) History of Uterine Anomaly/NITHYA: No (08/05/2016 13:55:Milli Wood RN) History of Infertility: No (08/05/2016 13:55:Milli Wood RN) History of ART Treatment: No (08/05/2016 13:55:Milli Wood RN) History of NITHYA: No (08/05/2016 13:55:Milli Wood RN) Comments Obstetrical History: G1: 2012 G2: current (08/05/2016 13:55:Milli Wood RN) MEDICAL HISTORY Med Hx Diabetes: No (08/05/2016 13:55:Milli Wood RN) Med Hx Hypertension: No (08/05/2016 13:55:Milli Wood RN) Med Hx Heart Disease: No (08/05/2016 13:55:Milli Wood RN) Med Hx Autoimmune Disorder: No (08/05/2016 13:55:Milli Wood RN) Med Hx Kidney Disease/UTI: No (08/05/2016 13:55:Milli Wood RN) Med Hx Neurologic/Epilepsy: No (08/05/2016 13:55:Milli Wood RN) Med Hx Psychiatric Disorders: No (08/05/2016 13:55:Milli Wood RN) Med Hx Hepatitis/Liver Disease: No (08/05/2016 13:55:Milli Wood RN) Med Hx Varicosities/Phlebitis: No (08/05/2016 13:55:Milli Wood RN) Med Hx Thyroid Dysfunction: No (08/05/2016 13:55:Milli Wood RN) Med Hx Trauma/Violence: No (08/05/2016 13:55:Milli Wood RN) Med Hx Blood Transfusion: No (08/05/2016 13:55:Milli Wood RN) Med Hx Pulmonary (Asthma,TB): No (08/05/2016 13:55:Milli Wood RN) Med Hx AIRCRAFT LOAD CONTROLLER Surgery: No (08/05/2016 13:55:Milli Wood RN) Med Hx Hospitalization/Surgery: Yes (08/05/2016 13:55:Milli Wood RN) Med Hx Anesthetic Complications: No (08/05/2016 13:55:Milli Wood RN) Med Hx Abnormal Pap Smear: No (08/05/2016 13:55:Milli Wood RN) Other Medical Diseases: No (08/05/2016 13:55:Milli Wood RN) Med Hx Significant Family Hx: No (08/05/2016 13:55:Milli Wood RN) INFECTIOUS HISTORY Inf Hx Gonorrhea: No (08/05/2016 13:55:Milli Wood RN) Inf Hx Chlamydia: No (08/05/2016 13:55:Milli Wood RN) Inf Hx Syphilis: No (08/05/2016 13:55:Milli Wood RN) Inf Hx HIV/AIDS: No (08/05/2016 13:55:Milli Wood RN) Inf Hx Human Papilloma Virus: No (08/05/2016 13:55:Milli Wood RN) Inf Hx Pt/Partner Genital Herpes: No (08/05/2016 13:55:Milli Wood RN) GENETIC HISTORY Gen Hx Age >=35 at ROSALIE: No (08/05/2016 13:55:Milli Wood RN) Gen Hx Thalassemia: No (08/05/2016 13:55:Milli Wood RN) Gen Hx Congenital Heart Defect: No (08/05/2016 13:55:Milli Wood RN) Gen Hx Neural Tube Defect: No (08/05/2016 13:55:Milli Wood RN) Gen Hx Down's Syndrome: No (08/05/2016 13:55:Milli Wood RN) Gen Hx Emeterio-Sachs: No (08/05/2016 13:55:Milli Wood RN) Gen Hx Isidro: No (08/05/2016 13:55:Milli Wood RN) Gen Hx Familial Dysautonomia: No (08/05/2016 13:55:Milli Wood RN) Gen Hx Sickle Cell Disease/Trait: No (08/05/2016 13:55:Milli Wood RN) Gen Hx Hemophilia/Blood Disorder: No (08/05/2016 13:55:Milli Wood RN) Gen Hx Muscular Dystrophy: No (08/05/2016 13:55:Milli Wood RN) Gen Hx Cystic Fibrosis: No (08/05/2016 13:55:Milli Wood RN) Gen Hx Huntingtons Chorea: No (08/05/2016 13:55:Milli Wood RN) Gen Hx Mental Retardation/Autism: No (08/05/2016 13:55:Milli Wood RN) Gen Hx Tested for Fragile X: No (08/05/2016 13:55:Milli Wood RN) Gen Hx Other Inher/Chromosomal: No (08/05/2016 13:55:Milli Wood RN) Gen Hx Maternal Metabolic DO: No (08/05/2016 13:55:Milli Wood RN) Gen Hx Pt Father or FOB Defect: No (08/05/2016 13:55:Milli Wood RN) Gen Hx Other Genetic History: No (08/05/2016 13:55:Milli Wood RN) Gen Hx Drugs/Meds since LMP: No (08/05/2016 13:55:Milli Wood RN) Gen Hx Medications: methadone 75 mg daily, daily (08/05/2016 13:55:Milli Wood RN)
--- NOTE | 2016-09-28 06:00 | L&D Current Admission ---
Current Admit Datetime Report Generated by CPN: 09/28/2016 06:00 ADMISSION INFORMATION Current Admit Date/Time: 09/26/2016 20:30 (09/26/2016 20:30:Samuel Blanco RN) Reason for Admission: Other (09/26/2016 20:30:Samuel Blanco RN) Other Reason for Admission: Originally admitted for NST, Contractions every 4-5 minutes (09/26/2016 20:30:Samuel Blanco RN) Chief Complaint: abdominal pain, nausea/vomiting (09/12/2016 10:20:Milli Wood RN) Medications During : Methadone; Vitamin (09/26/2016 20:30:Samuel Blanco RN) EGA per Dates: 40.1 (09/26/2016 20:30:QS system process) Method of Arrival: Wheelchair (09/26/2016 20:30:Samuel Blanco RN) Admitted From: Dr. Office (09/26/2016 20:30:Samuel Blanco RN) Records Available: Yes (09/26/2016 20:30:Samuel Blanco RN) General Admission Information: Reviewed (09/26/2016 20:30:Samuel Blanco RN) BELONGINGS/ADVANCED DIRECTIVES Valuables/Personal Effects: Purse/Wallet; Cell Phone (09/26/2016 20:30:Samuel Blanco RN) Disposition of Belongings: Kept with Patient (09/26/2016 20:30:Samuel Blanco RN) Advance Direct for Healthcare: No, and Wants No Information (09/26/2016 20:30:Samuel Blanco RN) Durable Power of Monotype Keyboard Operator: No (09/26/2016 20:30:Samuel Blanco RN) Living Will: No (09/26/2016 20:30:Samuel Blanco RN) Organ Donor: Yes (09/26/2016 20:30:Samuel Blanco RN) Pt Rights Information Given: Yes (09/26/2016 20:30:Samuel Blanco RN) Pt Understands Pt Rights: Yes (09/26/2016 20:30:Samuel Blanco RN) LEARNING ASSESSMENT Knowledge Level: Understands L_D Process; Understands Care Activities; Understands Diagnosis (09/26/2016 20:30:Samuel Blanco RN) Barriers to Learning: None (09/26/2016 20:30:Samuel Blanco RN) Learning Readiness: Motivated (09/26/2016 20:30:Samuel Blanco RN) Learns Best By: 1 to 1 Instruction; Demonstration (09/26/2016 20:30:Samuel Blanco RN) Learning Needs: Labor and Delivery Process; Pain Management; Symptoms to Report; Treatment Plan; Medication; Diagnosis; Nutrition; Equipment; Infant Care; Community Resources (09/26/2016 20:30:Samuel Blanco RN) DOMESTIC VIOLANCE SCREENING Dom Viol Threatened/Hurt: No (09/26/2016 20:30:Samuel Blanco RN) Hx of Abuse/Neglect past 2yrs: No (09/26/2016 20:30:Samuel Blanco RN) Feel Unsafe Going Home: No (09/26/2016 20:30:Samuel Blanco RN) Addt'l Observ Indicating Abuse: No (09/26/2016 20:30:Samuel Blanco RN) Considered Personal Harm/Suicide: No (09/26/2016 20:30:Samuel Blanco RN) NUTRITIONAL/FUNCTIONAL SCREENING Problem with Appetite >5 Days: No (09/26/2016 20:30:Samuel Blanco RN) Chew/Swallow Difficulties: No (09/26/2016 20:30:Samuel Blanco RN) Inappropriate Wt Gain/Loss: No (09/26/2016 20:30:Samuel Blanco RN) Presence Skin Breakdown/Ulcer: No (09/26/2016 20:30:Samuel Blanco RN) Special Diet: No (09/26/2016 20:30:Samuel Blanco RN) Pt Requests Skiver Blockers Visit: No (09/26/2016 20:30:Samuel Blanco RN) Hx of Any of the Following?: N/A (09/26/2016 20:30:Samuel Blanco RN) New Diagnosis of: N/A (09/26/2016 20:30:Samuel Blanco RN) Requires Assist w/Ambulation: No (09/26/2016 20:30:Samuel Blanco RN) Uses Assist Device to Ambulate: No (09/26/2016 20:30:Samuel Blanco RN) Pt Requires Help w/ADL's: No (09/26/2016 20:30:Samuel Blanco RN)
[2016-09-28] MEDS: IBUPROFEN 800 MG TABLET PO SCH ×3 (06:09→21:41)
[2016-09-28] MEDS: METHADONE PO SCH (07:53)
[2016-09-28] MEDS ORDERED: METHADONE PO SCH (08:00)
--- NOTE | 2016-09-28 10:05 | PDOC PROGRESS REPORT ---
Subjective-OB Subjective: Post Delivery Day: 26 year old. Denies any needs at this time Doing well, no c/o, OOB in room, scant lochia, bottle feeding Physical Exam (OB) Vital Signs: Temp Pulse Resp BP Pulse Ox 97.8 F 60 14 102/61 100 09/28/16 07:28 09/28/16 07:28 09/28/16 07:28 09/28/16 07:28 09/28/16 07:28 Intake & Output 09/27/16 09/28/16 09/29/16 06:59 06:59 06:59 Intake Total 1100 Balance 1100 - Lochia Lochia Amount: Scant < 10 ml Lochia Color: Rubra/Red - Abdomen Description: Tender, Soft Hernia Present: No Fundal Description: Firm, Midline Fundal Height: u/u - u/2 Objective-Diagnostic Laboratory: 09/27/16 13:14 09/27/16 13:14 WBC 18.3 H RBC 3.59 L Hgb 11.3 L Hct 33.5 L MCV 93 MCH 31.5 MCHC 33.7 RDW 13.7 Plt Count 172 Assessment and Plan(PN) - Assessment and Plan (1) Normal vaginal delivery Is this a current diagnosis for this admission?: Yes - Time Spent with Patient Time with patient: Less than 15 minutes Medications reviewed and adjusted accordingly: Yes - Disposition Anticipated Discharge: Home Within: within 24 hours
[2016-09-28] MEDS: FERROUS SULFATE 325 MG TABLET PO SCH ×2 (11:41→18:01)
[2016-09-28] MEDS: PRENATAL VITAMIN W-O CA NO5/FE FUMARATE/FA CAPSULE PO SCH (11:42)
[2016-09-28] MEDS: SENNOSIDES/DOCUSATE 8.6-50 MG 1 EACH TABLET PO SCH (11:42)
[2016-09-28] MEDS: DOCUSATE SODIUM 100 MG CAPSULE PO SCH ×2 (11:42→18:01)
[2016-09-29] MEDS ORDERED: ACETAMINOPHEN 325 MG TABLET PO PRN (00:16)
[2016-09-29] MEDS: IBUPROFEN 800 MG TABLET PO SCH ×2 (05:26→13:16)
[2016-09-29] MEDS: METHADONE PO SCH (07:49)
[2016-09-29 08:01] VITALS: BP 112/73
[2016-09-29] MEDS: DOCUSATE SODIUM 100 MG CAPSULE PO SCH (10:49)
[2016-09-29] MEDS: SENNOSIDES/DOCUSATE 8.6-50 MG 1 EACH TABLET PO SCH (10:49)
[2016-09-29] MEDS: PRENATAL VITAMIN W-O CA NO5/FE FUMARATE/FA CAPSULE PO SCH (10:49)
[2016-09-29] MEDS: FERROUS SULFATE 325 MG TABLET PO SCH (10:50)
--- NOTE | 2016-09-29 11:40 | PDOC DISCHARGE SUMMARY ---
Final Diagnosis Discharge Date: 09/29/16 - Final Diagnosis (1) Normal vaginal delivery Is this a current diagnosis for this admission?: Yes Discharge Data - Discharge Medication Home Medications: Methadone HCl [Methadose] 79 mg PO DAILY 09/05/13 Vit/Iron Fumarate/FA [ Tablet] 1 each PO DAILY 08/16/16 Reason(s) for Admission: Onset of Labor Procedures: NST Intrapartum Procedure(s): Spontaneous Vaginal Delivery Complication(s): Laceration-Perineal Laceration-Degree: 1st - Diagnosis Test Laboratory: Temp Pulse Resp BP Pulse Ox 97.8 F 74 12 112/73 99 09/29/16 07:55 09/29/16 07:55 09/29/16 07:55 09/29/16 07:55 09/29/16 07:55 09/26/16 09/26/16 09/27/16 17:15 20:56 13:14 RBC 3.85 3.59 L Hgb 12.2 11.3 L Hct 35.4 L 33.5 L Urine Opiates Screen NEGATIVE - Discharge information/Instructions Discharge Activity: Activity As Tolerated, No Driving, No Lifting Over 10 Pounds , No Lifting/Push/Pulling, Pelvic Rest, No tub bath Discharge Diet: Regular Disposition: HOME, SELF-CARE Follow up with: [facility] in: 4, Weeks
== END 2016-09-29 13:47 | disposition home or self-care (01) | DRG 775 ==
LOC: LC 16:59 → LR 20:37 → 2S 09-27 03:00
PROVIDERS: ADMIT Obstetrics & Gynecology; ATTEND Obstetrics & Gynecology
PROC: 4A1HXCZ Monitoring of Products of Conception, Cardiac Rate, External Approach (ICD-10-PCS; 2016-09-26)
PROC: 0HQ9XZZ Repair Perineum Skin, External Approach (ICD-10-PCS; principal; 2016-09-27)
PROC: 10E0XZZ Delivery of Products of Conception, External Approach (ICD-10-PCS; 2016-09-27)
DX: O69.81X0 Labor and delivery complicated by cord around neck, without compression, not applicable or unspecified (principal); O70.0 First degree perineal laceration during delivery; F17.210 Nicotine dependence, cigarettes, uncomplicated; Z79.891 Long term (current) use of opiate analgesic; Z3A.40 40 weeks gestation of pregnancy; Z37.0 Single live birth
CPT/HCPCS: 36415; 80307; 81005; 85025; 85027; 86592; 86850; 86900; 86901; 90686; 90715; 94760; J2590; J3490

== ENCOUNTER 2018-11-07 18:25 | Emergency (ER) | payer SELFPAY ==
[2018-11-07] MEDS ORDERED: NORMAL SALINE 1000 ML 2,000 ML IV ONE (20:46)
[2018-11-07] MEDS ORDERED: PIPERACILLIN/TAZOBACTAM 4.5 GM VIAL IV ONE (20:47)
[2018-11-07] MEDS ORDERED: ACETAMINOPHEN 325 MG TABLET PO ONE (20:48)
--- NOTE | 2018-11-07 20:52 | ER Document Report ---
ED Medical Screen (RME) - General Chief Complaint: Abdominal Pain Stated Complaint: BACK PAIN Time Seen by Provider: 11/07/18 20:37 Primary Care Provider: LUIS ARMANDO RODNEY PA-C [Primary Care Provider] - Follow up as needed Mode of Arrival: Ambulatory Information source: Patient TRAVEL OUTSIDE OF THE [place] IN LAST 30 DAYS: No - HPI Patient complains to provider of: FEVER, ABDO PAIN Notes: 11/07/18 20:48 Patient is here with complaints of fever and abdominal pain. She states that the abdominal pain started approximately 9 days ago. Tender lower abdomen and radiates around to her back. Pain is been constant. Nothing makes it better or worse. She denies any nausea, vomiting, diarrhea. No dysuria or hematuria. She states that she has had a fever as high as 104 for the last 6 days. Her last fever was just prior to arrival. She states that she took some Motrin right before getting here and then her fever broke. She was noted to be diaphoretic when she got to the triage desk. She denies the potential of having the tampon retained. No prior abdominal surgeries. No rash. No chest pain or shortness of breath. No cough. Exam Nontoxic, no distress. Mild tachycardia. Lungs clear and equal throughout. Mild bilateral CVA tenderness to percussion. Lower abdominal tenderness to exam with limited triage abdominal exam. Plan Due to the fact that the patient's vital signs are abnormal including fever and tachycardia when she arrived, I have initiated the sepsis protocol. She does not have a history of CHF. 30 mL's per kilo normal saline has been ordered. Labs including blood cultures, lactic acid, urine culture, CBC, CMP, urine, urine have been ordered. Patient has lower abdominal tenderness as well as some bilateral CVA tenderness, therefore CT of the abdomen pelvis with IV contrast has been ordered. I have ordered a dose of Zosyn to give broad coverage antibiotics for the abdomen. An initial examination was made on the patient as part of the triage process, and it was determined a more comprehensive evaluation was necessary. Initial labs were ordered and patient was transferred to another provider in the ED who assumed care and finished evaluation and plan. - Related Data Allergies/Adverse Reactions: No Known Allergies Allergy (Verified 11/07/18 20:43) Past Medical History - Social History Frequency of alcohol use: Occasional Drug Abuse: None Renal/ Medical History: Denies: Hx Peritoneal Dialysis GI Medical History: Reports: Hx Gastroesophageal Reflux Disease - Immunizations Hx Diphtheria, Pertussis, Tetanus Vaccination: - unk Physical Exam - Vital signs Vitals: Temp Pulse Resp BP Pulse Ox 100.4 F 116 H 18 105/65 96 11/07/18 18:55 11/07/18 18:55 11/07/18 18:55 11/07/18 18:55 11/07/18 18:55 Course - Vital Signs Vital signs: Temp Pulse Resp BP Pulse Ox 98.8 F 101 H 17 95/53 L 97 11/07/18 20:29 11/07/18 20:29 11/07/18 20:29 11/07/18 20:29 11/07/18 20:29 Doctor's Discharge - Discharge Referrals: LUIS ARMANDO RODNEY PA-C [Primary Care Provider] - Follow up as needed
--- NOTE | 2018-11-07 21:32 | RADIOLOGY REPORT (SQ) ---
EXAM DESCRIPTION: RadLex: XR CHEST 2 VIEWS Views: 2 CLINICAL HISTORY: 28 years Female, SEPSIS PROTOCOL COMPARISON: None. FINDINGS: The lungs are clear. No pneumothorax or significant pleural effusion. Cardiomediastinal silhouette is within normal limits. Bony structures are unremarkable for age. IMPRESSION: 1. No acute cardiothoracic abnormality.
[2018-11-07 22:25] LABS: ABSOLUTE LYMPHOCYTES (AUTO) 1.4 10^3/uL (0.5-4.7); ABSOLUTE NEUT (AUTO) 10.6 10^3/uL (1.7-8.2); BASOPHILS % (AUTO) 0.3 % (0-2); HEMATOCRIT 33.9 % (36.0-47.0); HEMOGLOBIN 11.8 g/dL (12.0-15.5); MEAN CORPUSCULAR HEMOGLOBIN 32.5 pg (27.0-33.4); MEAN CORPUSCULAR HGB CONC 34.9 g/dL (32.0-36.0); MEAN CORPUSCULAR VOLUME 93 fl (80-97); MONOCYTES % (AUTO) 14.3 % (3-13); PLATELET COUNT 293 10^3/uL (150-450); RED BLOOD COUNT 3.64 10^6/uL (3.72-5.28); RED CELL DISTRIBUTION WIDTH 13.4 % (11.5-14.0); SEGMENTED NEUTROPHILS % (AUTO) 75.4 % (42-78); TOTAL CELLS COUNTED % (AUTO) 100 %; WHITE BLOOD COUNT 14.1 10^3/uL (4.0-10.5)
[2018-11-07 22:44] LABS: APPEARANCE,URINE CLOUDY; BILIRUBIN,URINE NEGATIVE (NEGATIVE); COLOR,URINE YELLOW; GLUCOSE, URINE NEGATIVE (NEGATIVE); KETONES,URINE TRACE mg/dL (NEGATIVE); LEUKOCYTE ESTERASE,URINE LARGE (NEGATIVE); NITRITE,URINE NEGATIVE (NEGATIVE); PROTEIN,URINE 100 mg/dL (NEGATIVE); URINE SPECIFIC GRAVITY 1.013
[2018-11-07 22:49] LABS: ALANINE AMINOTRANSFERASE 37 U/L (9-52); ALBUMIN 3.8 g/dL (3.5-5.0); ALKALINE PHOSPHATASE 152 U/L (38-126); ANION GAP 17 (5-19); ASPARTATE AMINO TRANSFERASE 31 U/L (14-36); BILIRUBIN,DIRECT 1.1 mg/dL (0.0-0.4); BILIRUBIN,TOTAL 1.7 mg/dL (0.2-1.3); BLOOD UREA NITROGEN 11 mg/dL (7-20); CALCIUM 9.3 mg/dL (8.4-10.2); CARBON DIOXIDE 27 mmol/L (22-30); CHLORIDE 94 mmol/L (98-107); GLUCOSE 121 mg/dL (75-110); LIPASE 65.3 U/L (23-300); POTASSIUM 3.2 mmol/L (3.6-5.0); TOTAL PROTEIN 7.3 g/dL (6.3-8.2)
--- NOTE | 2018-11-07 23:28 | RADIOLOGY REPORT (SQ) ---
EXAM DESCRIPTION: CT ABDOMEN PELVIS WITH IV CONTRAST COMPLETED DATE/TME: 11/07/2018 20:47 CLINICAL HISTORY: 28 years, Female, ABDO PAIN, FEVER COMPARISON: None. TECHNIQUE: 655 Images stored on PACS. All CT scanners at this facility use dose modulation, iterative reconstruction, and/or weight based dosing when appropriate to reduce radiation dose to as low as reasonably achievable (ALARA). [facility]: Dose Right [facility]: CareDose [facility]: Dose Right [facility]: Teradose 4D [facility]: [employer] LIMITATIONS: None. FINDINGS: The visualized lung bases are unremarkable. Osseous structures are grossly intact. The liver, spleen, adrenal glands, pancreas are unremarkable. The gallbladder is present, contracted. Small gallstones are suggested. Delayed images through the kidneys demonstrate wedge-shaped areas of diminished attenuation bilaterally with perinephric inflammatory changes bilaterally. Findings likely reflect bilateral pyelonephritis. Renal infarct felt much less likely. No gross evidence for bowel obstruction. Large amount of stool in the colon. No free air or free fluid. Follicular change to the ovaries bilaterally. Probable dominant follicle of the left ovary measuring 2.7 x 2.5 cm. The appendix is not well seen however there is no pericecal inflammation to suggest acute appendicitis. 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 Correlate with patient history and urinalysis. Cholelithiasis. Follicular change to the ovaries with what is likely a dominant follicle of the left ovary. Recommendations for Benign-appearing simple adnexal cysts on CT with IV contrast and MR: (1)(2) Pre-menopause(3) (<= 50 years if LMP unknown): <=5 cm: No follow-up imaging recommended >5 cm - <=7 cm: US f/u 6-12 weeks >7 cm: Consider MR w/IVC or surgical evaluation Early post-menopause (<=5 years from LMP; > 50 years to <= 55 years if LMP unknown): <=3 cm: No follow-up imaging recommended (4) >3 cm - <=5 cm: US f/u 6-12 months (4) >5 cm - <=7 cm: US f/u promptly >7cm: Consider MR w/IVC or surgical evaluation Late post-menopause (>5 years from LMP; > 55 years if LMP unknown): <=3 cm: No follow-up imaging recommended >3 cm - <=7 cm: US f/u promptly >7 cm: Consider MR w/IVC or surgical evaluation (1)Recommendations based on the 2013 ACR White Paper for Managing Incidental Adnexal Findings on Abdominal and Pelvic CT and MRI: J Am Randi Radiol 2013;10:675-681 (2)Excludes normal/benign findings such as ovarian calcifications w/o associated non-calcified mass, corpus luteum cyst, previously characterized cyst and cyst with documented stability in size and appearance for >2 years (3)Includes cysts with layering hemorrhage (4)If internal hemorrhage suspected in cyst, US f/u 6-12 weeks TECHNICAL DOCUMENTATION: Quality ID # [id number]: Final reports with documentation of one or more dose reduction techniques (e.g., Automated exposure control, adjustment of the mA and/or kV according to patient size, use of iterative reconstruction technique) copyright 2011 [employer]- All Rights Reserved
[2018-11-08] MEDS ORDERED: POTASSIUM CHLORIDE 10 MEQ CAPSULE.ER PO ONE (00:49)
--- NOTE | 2018-11-08 00:50 | ER Document Report ---
ED General - General Chief Complaint: Abdominal Pain Stated Complaint: BACK PAIN Time Seen by Provider: 11/07/18 20:37 Primary Care Provider: LUIS ARMANDO RODNEY PA-C [Primary Care Provider] - 11/09/18 Mode of Arrival: Ambulatory Notes: Patient is a pleasant 28-year-old female who presents with several days of fevers, back pain, some dysuria and urinary frequency, and suprapubic pain. She denies abnormal vaginal discharge or bleeding. No history of IV drug use. She said she had a temp of 104 at home and took Tylenol which has decreased her temp at times she got here. Some nausea. No vomiting. No other complaints at this time. TRAVEL OUTSIDE OF THE [place] IN LAST 30 DAYS: No - Related Data Allergies/Adverse Reactions: No Known Allergies Allergy (Verified 11/07/18 20:43) Past Medical History - General Information source: Patient - Social History Smoking Status: Former Smoker Frequency of alcohol use: Occasional Drug Abuse: None Family History: Reviewed & Not Pertinent Patient has suicidal ideation: No Patient has homicidal ideation: No Renal/ Medical History: Denies: Hx Peritoneal Dialysis GI Medical History: Reports: Hx Gastroesophageal Reflux Disease - Immunizations Hx Diphtheria, Pertussis, Tetanus Vaccination: - unk Review of Systems - Review of Systems Notes: My Normal Review Basic REVIEW OF SYSTEMS: CONSTITUTIONAL : Fever EENT: Denies eye, ear, throat, or mouth pain or symptoms. Denies nasal or sinus congestion. CARDIOVASCULAR: Denies chest pain. RESPIRATORY: Denies cough, cold, or chest congestion. Denies shortness of breath, difficulty breathing, or wheezing. GASTROINTESTINAL: Prepubic abdominal pain rating to the back. Denies nausea, vomiting, or diarrhea. GENITOURINARY: dysuria FEMALE GENITOURINARY: Denies vaginal bleeding, abnormal or irregular periods. MUSCULOSKELETAL: Back pain SKIN: Denies rash or skin lesions. NEUROLOGICAL: Denies altered mental status or loss of consciousness. ALL OTHER SYSTEMS REVIEWED AND NEGATIVE. Physical Exam - Vital signs Vitals: Temp Pulse Resp BP Pulse Ox 100.4 F 116 H 18 105/65 96 11/07/18 18:55 11/07/18 18:55 11/07/18 18:55 11/07/18 18:55 11/07/18 18:55 - Notes Notes: General Appearance: Well nourished, alert, cooperative, no acute distress, no obvious discomfort. Well-appearing. Vitals: reviewed, See vital signs table. Head: no swelling or tenderness to the head Eyes: PERRL, EOMI, Conjuctiva clear Mouth: No decreasd moisture Lungs: No wheezing, No rales, No rhonci, No accessory muscle use, good air e xchange bilaterally. Heart: Normal rate, Regular rythm, No murmur, no rub Abdomen: Normal BS, soft, No rigidity, mild suprapubic abdominal tenderness, No guarding, no rebound, no abdominal masses Back: Positive Jose sign mostly on the right. Extremities: strength 5/5 in all extremities, good pulses in all extremities, no swelling or tenderness in the extremities, no edema. Skin: warm, dry, appropriate color, no rash Neuro: speech clear, oriented x 3, normal affect, responds appropriately to qu estions. Course - Re-evaluation Re-evalutation: 11/08/18 01:16 Patient's urinalysis consistent with pyelonephritis. This is also consistent with her clinical presentation. Kidney function is normal. Lactic acid is normal. Her vital signs have stabilized. She is now afebrile. She looks and feels much improved. I informed her that she should still have a low threshold to return to ER if she has worsening pain, vomiting, recurrent fevers, or she feels unwell. Patient agrees with plan will be discharged home. Dictation of this chart was performed using voice recognition software; therefore, there may be some unintended grammatical errors. 11/08/18 04:39 - Vital Signs Vital signs: Temp Pulse Resp BP Pulse Ox 97.5 F 78 18 107/66 100 11/08/18 00:56 11/08/18 00:56 11/08/18 00:56 11/08/18 00:56 11/08/18 00:56 - Laboratory Result Diagrams: 11/07/18 22:13 11/07/18 22:13 Laboratory results interpreted by me: 11/07/18 11/07/18 11/07/18 21:00 22:13 22:13 WBC 14.1 H RBC 3.64 L Hgb 11.8 L Hct 33.9 L Lymphocytes % 10.0 L Monocytes % 14.3 H Absolute Neutrophils 10.6 H Absolute Monocytes 2.0 H Potassium 3.2 L Chloride 94 L Glucose 121 H Total Bilirubin 1.7 H Direct Bilirubin 1.1 H Alkaline Phosphatase 152 H Urine Protein 100 H Urine Ketones TRACE H Urine Blood MODERATE H Urine Urobilinogen 4.0 H Ur Leukocyte Esterase LARGE H Discharge - Discharge Clinical Impression: Pyelonephritis Condition: Good Disposition: HOME, SELF-CARE Additional Instructions: PYELONEPHRITIS: Your evaluation shows evidence of pyelonephritis. This is an infection in the kidney. Typical symptoms are fever, pain in the flank, pain on urination, and frequent urination. Many cases of pyelonephritis can be treated at home. Hospital care may be necessary for patients who are very ill, or elderly or . Pyelonephritis is treated with antibiotics. Be sure to take all the medication as prescribed. Drink plenty of liquids (about three quarts per day). You may take acetaminophen for fever. You should feel significantly improved within two days. You should have a recheck of your urine in about one week to insure that the infection is gone. Return for a re-examination if your symptoms worsen in any way -- such as high fever, shaking chills, severe weakness or dizziness, severe pain, or inability to pass your urine. ANTIBIOTIC THERAPY: You have been given an antibiotic prescription. It's important that you take all the medication, unless instructed otherwise by your physician. Failure to complete the entire course can result in relapse of your condition. Common side effects of antibiotics include nausea, intestinal cramping, or diarrhea. Women may develop vaginal yeast infections, and babies can get yeast (thrush) in the mouth following the use of antibiotics. Contact your physician if you develop significant side effects from this medication. Allergy to this antibiotic can result in hives, wheezing, faintness, or itching. If symptoms of allergy occur, stop the medication and call the doctor. CEPHALEXIN: The antibiotic you've been prescribed is a member of the cephalosporin class. This type of antibiotic covers a wide variety of infections, including those of the skin, lungs, and urinary tract. It's useful for staph infections. This antibiotic is slightly similar to the penicillin family. In rare cases, a person who is allergic to penicillin will also be allergic to this medication. If you have had a severe allergic reaction to penicillin, and have not taken this antibiotic since that time, notify your doctor. Antibiotics which cover many germs ("broad spectrum" antibiotics) are more likely to cause diarrhea or "yeast" infections. Women prone to vaginal yeast problems may suffer an attack after taking this antibiotic. In infants, oral thrush (white spots "stuck" on the cheek) or yeast diaper rash may result. See your doctor if these problems occur. Call at once if you develop itching, hives, shortness of breath, or lightheadedness. FOLLOW-UP CARE: Follow-up with your doctor on Monday if possible. You can also return to the ER for reevaluation. You may still have some intermittent fever over the next 24 hours. Please take Tylenol to help treat your fever. Still having fever up to 24 hours she should return to the ER for reevaluation. Return to ER immediately if you have intractable vomiting, severe pain, fevers not responding to Tylenol, or if you feel that you are worsening in any way. Prescriptions: RX: Cephalexin Monohydrate [Keflex 500 mg Capsule] 500 mg PO Q6H 7 Days capsule Referrals: LUIS ARMANDO RODNEY PA-C [Primary Care Provider] - 11/09/18
[2018-11-08 00:57] VITALS: BP 107/66
== END 2018-11-08 01:27 | disposition home or self-care (01) ==
LOC: ER 18:25
DX: N12 Tubulo-interstitial nephritis, not specified as acute or chronic (principal); R10.9 Unspecified abdominal pain; M54.9 Dorsalgia, unspecified; R50.9 Fever, unspecified; R30.0 Dysuria; R35.0 Frequency of micturition; R10.30 Lower abdominal pain, unspecified; R11.0 Nausea; Z87.891 Personal history of nicotine dependence
CPT/HCPCS: 36415; 87040; 87086; 83690; 85025; 81025; 87088; 80053; 81001; 87186; 83605; 71046; 74177; J7030; J2543

== ENCOUNTER → 2019-01-17 | Outpatient (CLI) | payer SELFPAY ==
--- NOTE | 2019-01-17 15:16 | RADIOLOGY REPORT (SQ) ---
EXAM DESCRIPTION: U/S LC2GHQN TRNABD 1GES W/ODOP COMPLETED DATE/TIME: 01/17/2019 2:44 pm REASON FOR STUDY: Z34.81 ENCOUNTER FOR SUPRVSN OF NORMAL , FIRST TRIMESTER Z34.81 ENCOUNTE R FOR SUPRVSN OF NORMAL , FIRST TRIM COMPARISON: None. TECHNIQUE: Transabdominal static and realtime grayscale images acquired of the pelvis. Additional se lected spectral and color Doppler images recorded. All images stored on PACs. CG: Not available. CLINICAL DATES: 7 weeks 6 days. LIMITATIONS: None. FINDINGS: FETUS: Single Living intrauterine . ULTRASOUND EGA: 6 weeks 6 days. ULTRASOUND ROSALIE: 09/06/2019 EFW: Not applicable less than 20 weeks. CRL: Present. FHR: 139 beats per minute. SURVEY: Too early to assess. AMNIOTIC FLUID: Too early to assess. PLACENTA: Not yet developed due to early gestation. SUBCHORIONIC BLEED: Yes. SIZE OF BLEED: 1.5 x 0.9 x 0.4 cm. UTERUS: No masses. No anomalies. CERVICAL LENGTH: 1.8 cm. Closed. RIGHT ADNEXA: Normal ovary with normal vascular flow. No adnexal free fluid. No adnexal masses. LEFT ADNEXA: Normal ovary with normal vascular flow. No adnexal free fluid. No adnexal masses. FREE FLUID: None. OTHER: No other significant finding. IMPRESSION: LIVING INTRAUTERINE . EGA 6 WEEKS 6 DAYS. THERE IS A SMALL SUBCHRONIC BLEED. Trimester of : First - 0 to 13 weeks. TECHNICAL DOCUMENTATION: JOB ID: [id number] [email or web address]- All Rights Reserved rev Reading location - IP/workstation name: [email or web address]
== END ==
LOC: RAD 13:59
PROVIDERS: ATTEND Midwife
DX: Z34.81 Encounter for supervision of other normal pregnancy, first trimester (principal)
CPT/HCPCS: 76801

== ENCOUNTER 2019-04-30 17:42 | Outpatient (CLI) | payer MEDICAID ==
[2019-04-30] MEDS ORDERED: RINGERS SOLUTION,LACTATED 1,000 ML IV PRN (18:46)
[2019-04-30] MEDS ORDERED: HYDROXYZINE PAMOATE 50 MG CAPSULE PO ONE (18:47)
[2019-04-30 18:51] LABS: APPEARANCE,URINE SLIGHTLY-CLOUDY; BILIRUBIN,URINE NEGATIVE (NEGATIVE); COLOR,URINE YELLOW; GLUCOSE, URINE NEGATIVE (NEGATIVE); KETONES,URINE NEGATIVE (NEGATIVE); LEUKOCYTE ESTERASE,URINE NEGATIVE (NEGATIVE); NITRITE,URINE NEGATIVE (NEGATIVE); PROTEIN,URINE NEGATIVE (NEGATIVE); URINE SPECIFIC GRAVITY 1.016; UROBILINOGEN,URINE NEGATIVE mg/dL (<2.0)
[2019-04-30] MEDS ORDERED: HYDROXYZINE PAMOATE 50 MG CAPSULE ONE (19:02)
[2019-04-30 19:08] LABS: URINE AMPHETAMINES SCREEN NEGATIVE; URINE BARBITURATES SCREEN NEGATIVE; URINE BENZODIAZEPINES SCREEN NEGATIVE; URINE COCAINE SCREEN NEGATIVE; URINE MARIJUANA (THC) SCREEN NEGATIVE; URINE METHADONE SCREEN NEGATIVE; URINE PHENCYCLIDINE SCREEN NEGATIVE
[2019-04-30 19:21] LABS: ABSOLUTE BASOPHILS # (AUTO) 0.1 10^3/uL (0.0-0.2); ABSOLUTE EOSINOPHILS # (AUTO) 0.2 10^3/uL (0.0-0.6); ABSOLUTE LYMPHOCYTES (AUTO) 2.2 10^3/uL (0.5-4.7); ABSOLUTE MONOCYTES (AUTO) 0.6 10^3/uL (0.1-1.4); BASOPHILS % (AUTO) 0.5 % (0-2); EOSINOPHILS % (AUTO) 1.9 % (0-6); HEMATOCRIT 33.7 % (36.0-47.0); HEMOGLOBIN 11.9 g/dL (12.0-15.5); LYMPHOCYTES % (AUTO) 19.6 % (13-45); MEAN CORPUSCULAR HEMOGLOBIN 32.9 pg (27.0-33.4); MEAN CORPUSCULAR HGB CONC 35.5 g/dL (32.0-36.0); MEAN CORPUSCULAR VOLUME 93 fl (80-97); MONOCYTES % (AUTO) 5.2 % (3-13); PLATELET COUNT 175 10^3/uL (150-450); RED BLOOD COUNT 3.63 10^6/uL (3.72-5.28); RED CELL DISTRIBUTION WIDTH 12.6 % (11.5-14.0); SEGMENTED NEUTROPHILS % (AUTO) 72.8 % (42-78); TOTAL CELLS COUNTED % (AUTO) 100 %
--- NOTE | 2019-04-30 22:01 | RADIOLOGY REPORT (SQ) ---
EXAM DESCRIPTION: US RETROPERITONEUM LIMITED COMPLETED DATE/TME: 04/30/2019 00:00 CLINICAL HISTORY: 28 years, Female, RENAL ULTRASOUND COMPARISON: None. TECHNIQUE: Transverse and longitudinal sonographic images of the kidneys and urinary bladder LIMITATIONS: None. FINDINGS: The right kidney measures 11.2 x 4.8 x 4.3 cm, the left 12.5 x 4.8 4.8 cm. No renal calculus, mass, or hydronephrosis. No perinephric fluid collection. The right ureteral jet was not well seen, however there is no hydronephrosis. Urinary bladder is grossly unremarkable IMPRESSION: Unremarkable appearance to the kidneys bilaterally copyright 2010 [employer]- All Rights Reserved
--- NOTE | 2019-04-30 22:02 | RADIOLOGY REPORT (SQ) ---
EXAM DESCRIPTION: US LIMITED COMPLETED DATE/TME: 04/30/2019 00:00 CLINICAL HISTORY: 28 years, Female, Cervical Length / Renal Ultrasound COMPARISON: Prior study from 02/05/2019 TECHNIQUE: Axial 2-D grayscale images of the pelvis were acquired. Doppler was utilized. LIMITATIONS: None. FINDINGS: Limited pelvic ultrasound was performed to assess for position and cervical length. position is breech. Cervical length is 2.9 cm. However, the cervix does appear closed. Largest vertical pocket of amniotic fluid is 5.3 cm. heart rate is 171 bpm Placenta is posterior and towards the right. IMPRESSION: Cervical length is 2.9 cm, closed. Otherwise, single live intrauterine with heart rate of 171 bpm, slightly elevated. copyright 2010 [employer]- All Rights Reserved
== END 2019-04-30 22:44 | disposition home or self-care (01) ==
LOC: LC 17:42
PROVIDERS: ATTEND Obstetrics & Gynecology
PROC: 4A1HXCZ Monitoring of Products of Conception, Cardiac Rate, External Approach (ICD-10-PCS; principal; 2019-04-30)
DX: O26.892 Other specified pregnancy related conditions, second trimester (principal); R10.2 Pelvic and perineal pain; Z3A.21 21 weeks gestation of pregnancy
CPT/HCPCS: 59899; 36415; 85025; 81001; 80307; 76775; 76815; J3490

== ENCOUNTER 2019-09-07 21:36 | Inpatient (IN) | payer MEDICAID ==
[2019-09-07 22:05] LABS: APPEARANCE,URINE CLOUDY; BILIRUBIN,URINE NEGATIVE (NEGATIVE); COLOR,URINE YELLOW; GLUCOSE, URINE NEGATIVE (NEGATIVE); KETONES,URINE NEGATIVE (NEGATIVE); LEUKOCYTE ESTERASE,URINE MODERATE (NEGATIVE); NITRITE,URINE NEGATIVE (NEGATIVE); PROTEIN,URINE NEGATIVE (NEGATIVE); URINE SPECIFIC GRAVITY 1.015; UROBILINOGEN,URINE NEGATIVE mg/dL (<2.0)
[2019-09-07 22:20] LABS: URINE AMPHETAMINES SCREEN NEGATIVE; URINE BARBITURATES SCREEN NEGATIVE; URINE BENZODIAZEPINES SCREEN NEGATIVE; URINE COCAINE SCREEN NEGATIVE; URINE MARIJUANA (THC) SCREEN NEGATIVE; URINE METHADONE SCREEN NEGATIVE; URINE PHENCYCLIDINE SCREEN NEGATIVE
--- NOTE | 2019-09-08 00:05 | Admission Physical ---
Datetime Report Generated by CPN: 09/08/2019 00:05 CURRENT ADMISSION Chief Complaint: Uterine Contractions Indication for Induction: Indicated by Testing Admit Impression : Term, Intrauterine ; No Active Labor Admit Plan: Admit to Unit; Initiate Labor Augmentation Protocol ALLERGIES Medication Allergies: No Medication Allergies: No Known Allergies (09/07/2019) Latex: No Latex Allergies Food Allergies: none Environmental Allergies: none OBSTETRICAL HISTORY EDC: 09/06/2019 00:00 : 4 Para: 2 Term: 2 IAB: 1 Livin Gestational Diabetes: No Rh Sensitization: No Incompetent Cervix: No NITHYA: No Infertility: No ART Treatment: No Uterine Anomaly: No IUGR: No Hx Previous C/S: No Macrosomia: No Hx Loss/Stillborn: No PIH: No Hx : No Placenta Previa/Abruption: No Depression/PP Depression: No PTL/PROM: No Post Hemorrhage: No Current Procedures: Ultrasound Obstetrical History Comments: 2011 40.3 weeks 2016 41 weeks vaginal delivery- used methadone 07/2018 IAB G4- current SEE RECORDS Alcohol: No Marijuana : No Cocaine: No Other Illicit Drugs: No Cigarettes: Current Everyday Smoker. 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 Surgery: No Heart Disease: No Hosp/Surgery: No Autoimmune Disorder: No Anesthetic Complications: No Kidney Disease: No Abnormal Pap Smear: No Neuro/Epilepsy: No Psychiatric Disorders: No Other Medical Diseases: No Hepatitis/Liver Disease: No Significant Family History: No Varicosities/Phlebitis: No Trauma/Violence : No Thyroid Dysfunction: No INFECTIOUS HISTORY Gonorrhea: No Genital Herpes: No Chlamydia: No Tuberculosis: No Syphilis: No Hepatitis: No HIV/AIDS Exposure: No Rash or Viral Illness: No HPV: No PHYSICAL EXAM General: Normal HEENT: Normal Neurologic: Normal Thyroid: Normal Heart: Normal Lungs: Normal Breast: Normal Back: Normal Abdomen: Normal Genitourinary Exam: Normal Extremities: Normal DTRs: Normal Pelvic Type: Adequate Vital Signs: Reviewed; Within Normal Limits VAGINAL EXAM Dilatation: 2 Effacement: 80 Station: -1 MEMBRANES Pooling: Negative Membranes: Intact FETUS A EGA: 40.2 Monitoring: External US FHR- Baseline: 160 Variability: Minimal - Undetectable to <=5bpm Accelerations: 10X10 Decelerations: None FHR Category: Category II FHR Comments: warrants delivery at this EGA Estimated Weight (gm): 3500 Presentation: Vertex PLANS FOR LABOR AND DELIVERY Labor and Delivery: None Pain Management: Epidural Feeding Preference: Formula Benefit of Breast Feed Discussed: Yes Circumcision: N/A INFORMED CONSENT Signature: with User ID: [place]
[2019-09-08] MEDS ORDERED: OXYTOCIN 10 UNIT/ML VIAL ONE (00:12)
[2019-09-08] MEDS ORDERED: RINGERS SOLUTION,LACTATED 1,000 ML IV PRN (00:12)
[2019-09-08] MEDS ORDERED: OXYTOCIN/NORMAL SALINE 20 UNIT/1,000 ML RTUINJ ONE (00:13)
[2019-09-08] MEDS ORDERED: LIDOCAINE 1% INJ-PF (10 MG/ML) 30 ML SDV ONE (00:13)
[2019-09-08] MEDS ORDERED: MISOPROSTOL 0.2 MG TABLET ONE (00:13)
[2019-09-08] MEDS ORDERED: OXYTOCIN/NORMAL SALINE 20 UNIT/1,000 ML RTUINJ IV PRN ×2 (00:31→02:25)
[2019-09-08 00:51] LABS: ABSOLUTE EOSINOPHILS # (AUTO) 0.1 10^3/uL (0.0-0.6); ABSOLUTE LYMPHOCYTES (AUTO) 2.8 10^3/uL (0.5-4.7); ABSOLUTE MONOCYTES (AUTO) 0.7 10^3/uL (0.1-1.4); ABSOLUTE NEUT (AUTO) 8.6 10^3/uL (1.7-8.2); BASOPHILS % (AUTO) 0.1 % (0-2); EOSINOPHILS % (AUTO) 0.5 % (0-6); HEMATOCRIT 37.5 % (36.0-47.0); HEMOGLOBIN 13.1 g/dL (12.0-15.5); LYMPHOCYTES % (AUTO) 23.2 % (13-45); MEAN CORPUSCULAR HEMOGLOBIN 32.3 pg (27.0-33.4); MEAN CORPUSCULAR HGB CONC 34.9 g/dL (32.0-36.0); MEAN CORPUSCULAR VOLUME 93 fl (80-97); MONOCYTES % (AUTO) 5.8 % (3-13); PLATELET COUNT 199 10^3/uL (150-450); RED BLOOD COUNT 4.06 10^6/uL (3.72-5.28); RED CELL DISTRIBUTION WIDTH 12.8 % (11.5-14.0); SEGMENTED NEUTROPHILS % (AUTO) 70.4 % (42-78); TOTAL CELLS COUNTED % (AUTO) 100 %; WHITE BLOOD COUNT 12.2 10^3/uL (4.0-10.5)
[2019-09-08] MEDS ORDERED: FENTANYL/BUPIVACAINE/NS/PF 0 MCG/0 ML RTUINJ EPI ONE (01:35)
[2019-09-08] MEDS ORDERED: EPHEDRINE SULFATE INJ 50 MG/1 ML AMPULE ONE (01:35)
[2019-09-08] MEDS ORDERED: PHENYLEPHRINE HCL INJ/PF 10 MG/1 ML SDV ONE (01:35)
[2019-09-08] MEDS ORDERED: BUPIVACAINE HCL 0.25 % INJ/PF (2.5 MG/1 ML) 30 ML VIAL ONE (01:35)
[2019-09-08] MEDS ORDERED: FENTANYL CITRATE INJ/PF 100 MCG/2 ML AMPUL ONE (01:35)
[2019-09-08] MEDS ORDERED: ACETAMINOPHEN WITH CODEINE #3 TABLET ONE (02:18)
[2019-09-08] MEDS ORDERED: IBUPROFEN 800 MG TABLET ONE (02:19)
[2019-09-08] MEDS ORDERED: NA PHOS,M-B/NA PHOS,DI-BA (ADULT) 133 ML ENEMA PR PRN (02:25)
[2019-09-08] MEDS ORDERED: MAGNESIUM HYDROXIDE SUSP 30 ML UDCUP PO PRN (02:25)
[2019-09-08] MEDS ORDERED: GLYCERIN/WITCH HAZEL LEAF 1 EACH MED..WIPE TP PRN (02:25)
[2019-09-08] MEDS ORDERED: PROMETHAZINE HCL 25 MG SUPP.RECT PR PRN (02:25)
[2019-09-08] MEDS ORDERED: PROMETHAZINE HCL INJ 25 MG/1 ML VIAL IV PRN (02:25)
[2019-09-08] MEDS ORDERED: ZOLPIDEM TARTRATE 5 MG TABLET PO PRN (02:25)
[2019-09-08] MEDS ORDERED: DIBUCAINE 1% OINTMENT 28 GM TP PRN (02:25)
[2019-09-08] MEDS ORDERED: ACETAMINOPHEN 650 MG SUPP.RECT PR PRN (02:25)
[2019-09-08] MEDS ORDERED: PSEUDOEPHEDRINE HCL 30 MG TABLET PO PRN (02:25)
[2019-09-08] MEDS ORDERED: DIPHENHYDRAMINE HCL 25 MG CAPSULE PO PRN (02:25)
[2019-09-08] MEDS ORDERED: PROMETHAZINE HCL 25 MG TABLET PO PRN (02:25)
[2019-09-08] MEDS ORDERED: DIPH/PERTUSS(ACELL)/TETANUS VAC/PF 0.5 ML SYR (>=10YO) IM PRN (02:25)
[2019-09-08] MEDS ORDERED: MEASLES,MUMPS&RUBELLA VACC/PF 0.5 ML VIAL SUBCUT PRN (02:25)
[2019-09-08] MEDS ORDERED: ACETAMINOPHEN WITH CODEINE #3 TABLET PO PRN ×2 (02:25)
[2019-09-08] MEDS ORDERED: BENZOCAINE/MENTHOL AEROSOL SPRAY 56 ML TOP PRN (02:25)
--- NOTE | 2019-09-08 03:41 | Delivery Summary ---
Del Sum A-C Datetime Report Generated by CPN: 09/08/2019 03:41 DELIVERY PERSONNEL DELIVERY PERSONNEL: [id number] Delivery Doctor:: Kat Wood MD Labor and Delivery Nurse:: Izabela Marie RNclassroom coordinator Nurse:: Meme Sloan RN Binding Machine Operator:: Netta Sapp RN Nursery Nurse:: YAMILETH Darling/STOCK HANGER: Ana Dorantes, ST MATERNAL INFORMATION Delivery Anesthesia: None Medications After Delivery: Pitocin Drip 20 Units/1000ml NSS Estimated Blood Loss (ml): 200 Delivery QBL: 200 Maternal Complications: None LABOR SUMMARY EDC: 09/06/2019 00:00 No. Babies in Womb: 1 Attempted: No Labor Anesthesia: None LABOR INFORMATION Reason for Induction: Other Reason for Induction- Other: NRFHTs Onset of Labor: 09/07/2019 18:30 Complete Dilatation: 09/08/2019 02:06 Oxytocin: Induction Group B Beta Strep: negative (Annotations: Data stored by N on behalf of user) Antibiotics # of Doses: nonr Steroids Given: None Reason Steroids Not Administered: Not Applicable MEMBRANES Membranes Rupture Method: Artificial Rupture of Membranes: 09/08/2019 02:07 Length of Rupture (hr): 0.10 Amniotic Fluid Color: Clear Amniotic Fluid Amount: Small Amniotic Fluid Odor: Normal STAGES OF LABOR Stage 1 hr: 7 Stage 1 min: 36 Stage 2 hr: 0 Stage 2 min: 7 Stage 3 hr: 0 Stage 3 min: 3 Total Time in Labor hr: 7 Total Time in Labor min: 46 VAGINAL DELIVERY Episiotomy: None Laceration #1: None Laceration Extension #1: N/A Laceration Repair: Not Applicable Sponge Count Correct: N/A CSECTION DELIVERY Primary Indication: N/A Secondary Indication: N/A CSection Incidence: N/A Labor: N/A Elective: N/A CSection Incision: N/A BABY A INFORMATION Delivery Date/Time: 09/08/2019 02:13 Method of Delivery: Vaginal Nurse Controlled Delivery: No Born in Route : No : N/A Forceps: N/A Vacuum Extraction: N/A Shoulder Dystocia : No PRESENTATION/POSITION BABY A Presentation: Cephalic Cephalic Presentation: Vertex Vertex Position: Left Occipital Anterior Breech Presentation: N/A PLACENTA INFORMATION BABY A Placenta Delivery Time : 09/08/2019 02:16 Placenta Method of Delivery: Spontaneous Placenta Status: Delivered SCORES BABY A Heart Rate 1 min: >100 bpm Resp Effort 1 min: Good Cry Reflex Irritability 1 min: Cough or Sneeze or Pulls Away Muscle Tone 1 min: Active Motion Color 1 min: Blue/Pale Resuscitation Effort 1 min: Tactile Stimulation SCORE 1 MIN: 8 Heart Rate 5 min: >100 bpm Resp Effort 5 min: Good Cry Reflex Irritability 5 min: Cough or Sneeze or Pulls Away Muscle Tone 5 min: Active Motion Color 5 min: Body [place], Extremities Blue Resuscitation Effort 5 min: Tactile Stimulation SCORE 5 MIN: 9 INFANT INFORMATION BABY A Gestational Age at Delivery: 40.2 Gestational Status: Full Term- 39- 40.6 Weeks Outcome : Liveborn Infant Condition : Stable Sex: Female IDENTIFICATION BABY A Verification Date/Time: 09/08/2019 02:20 ID Band Number: [id number] Mother's Name Verified: Yes RN Verifying : Yonathan SloanYAMILETH Additional Verifying Personnel: Jorje Marie RN WEIGHT/LENGTH BABY A Birthweight (gm): 2783 Infant Weight (lb): 6 Infant Weight (oz): 2 Infant Length (in): 19.25 Length (cm): 48.90 CORD INFORMATION BABY A No. Cord Vessels: 3 Nuchal Cord : N/A Cord Blood Taken: Yes-For Eval (Mom's Blood Type - or O+) Infant Suction: Mouth; Nose ASSESSMENT BABY A Skin to Skin: No SIGNATURES Signature: with User ID: [email or web address]
[2019-09-08] MEDS: IBUPROFEN 800 MG TABLET PO SCH ×3 (05:05→21:21)
[2019-09-08] MEDS: PRENATAL VITAMIN W DHA CAPSULE PO SCH (10:12)
[2019-09-08] MEDS: DOCUSATE SODIUM 100 MG CAPSULE PO SCH ×2 (10:12→17:29)
[2019-09-08] MEDS: FERROUS SULFATE 325 MG TABLET PO SCH ×2 (10:12→17:29)
[2019-09-08] MEDS: FAMOTIDINE 20 MG TABLET PO SCH ×2 (10:15→21:22)
[2019-09-08] MEDS: SENNOSIDES/DOCUSATE 8.6-50 MG 1 EACH TABLET PO SCH (10:16)
[2019-09-09] MEDS: IBUPROFEN 800 MG TABLET PO SCH ×3 (05:04→22:49)
[2019-09-09 07:01] LABS: HEMATOCRIT 33.8 % (36.0-47.0); MEAN CORPUSCULAR HEMOGLOBIN 33.1 pg (27.0-33.4); MEAN CORPUSCULAR HGB CONC 35.6 g/dL (32.0-36.0); MEAN CORPUSCULAR VOLUME 93 fl (80-97); PLATELET COUNT 167 10^3/uL (150-450); RED BLOOD COUNT 3.63 10^6/uL (3.72-5.28); RED CELL DISTRIBUTION WIDTH 12.9 % (11.5-14.0); WHITE BLOOD COUNT 7.7 10^3/uL (4.0-10.5)
[2019-09-09] MEDS: SENNOSIDES/DOCUSATE 8.6-50 MG 1 EACH TABLET PO SCH (09:37)
[2019-09-09] MEDS: FERROUS SULFATE 325 MG TABLET PO SCH ×2 (09:37→18:39)
[2019-09-09] MEDS: PRENATAL VITAMIN W DHA CAPSULE PO SCH (09:37)
[2019-09-09] MEDS: FAMOTIDINE 20 MG TABLET PO SCH ×2 (09:37→22:48)
[2019-09-09] MEDS: DOCUSATE SODIUM 100 MG CAPSULE PO SCH ×2 (09:37→18:38)
--- NOTE | 2019-09-09 09:55 | PDOC PROGRESS REPORT ---
Subjective-OB Progress Note for:: 09/09/19 Subjective: Doing well, no c/o, holding baby, voiding, Physical Exam (OB) Vital Signs: Temp Pulse Resp BP Pulse Ox 98.0 F 74 16 109/72 100 09/09/19 08:24 09/09/19 08:24 09/09/19 08:24 09/09/19 08:24 09/09/19 08:24 Intake & Output 09/08/19 09/09/19 09/10/19 06:59 06:59 06:59 Intake Total 240 1350 Output Total 200 Balance 40 1350 Weight 73.3 kg - PIH/Pre-Eclampsia Clonus: Negative Headache: Absent Epigastric Pain: No Visual Changes: No - Lochia Lochia Amount: Scant < 10 ml Lochia Color: Rubra/Red - Abdomen Description: Soft, Round Hernia Present: No Fundal Description: Firm, Midline Fundal Height: u/u - u/2 Objective-Diagnostic Laboratory: 09/09/19 06:44 09/09/19 06:44 WBC 7.7 RBC 3.63 L Hgb 12.0 Hct 33.8 L MCV 93 MCH 33.1 MCHC 35.6 RDW 12.9 Plt Count 167 Assessment and Plan(PN) - Time Spent with Patient Time with patient: Less than 15 minutes Medications reviewed and adjusted accordingly: Yes - Disposition Anticipated Discharge: Home Within: within 24 hours
[2019-09-10] MEDS: IBUPROFEN 800 MG TABLET PO SCH (06:00)
[2019-09-10] MEDS: PRENATAL VITAMIN W DHA CAPSULE PO SCH (10:12)
[2019-09-10] MEDS: FERROUS SULFATE 325 MG TABLET PO SCH (10:12)
[2019-09-10] MEDS: DOCUSATE SODIUM 100 MG CAPSULE PO SCH (10:12)
[2019-09-10] MEDS: SENNOSIDES/DOCUSATE 8.6-50 MG 1 EACH TABLET PO SCH (10:12)
[2019-09-10] MEDS: FAMOTIDINE 20 MG TABLET PO SCH (10:12)
--- NOTE | 2019-09-10 10:59 | PDOC DISCHARGE SUMMARY ---
Impression - Admit/DC Date/PCP Admission Date/Primary Care Provider: 09/07/19 23:44 NO LOCALMD Discharge Date: 09/10/19 - Discharge Diagnosis (1) Normal course Is this a current diagnosis for this admission?: Yes (2) Normal vaginal delivery Is this a current diagnosis for this admission?: Yes - Additional Information Resuscitation Status: Full Code Discharge Diet: Regular Discharge Activity: Balance Activity w/Rest, Pelvic Rest Referrals: LOCALPR,NO [Primary Care Provider] - Home Medications: Vits96/Iron Fum/Folic [ Tablet] 1 each PO DAILY 04/30/19 HPI Reason(s) for Admission: Induction of Labor, Status Procedures: NST Intrapartum Procedure(s): Spontaneous Vaginal Delivery Complication(s): Laceration-Labial Laceration-Degree: 1st Results Laboratory Results: WBC 7.7 10^3/uL (4.0-10.5) 09/09/19 06:44 RBC 3.63 10^6/uL (3.72-5.28) L 09/09/19 06:44 Hgb 12.0 g/dL (12.0-15.5) 09/09/19 06:44 Hct 33.8 % (36.0-47.0) L 09/09/19 06:44 MCV 93 fl (80-97) 09/09/19 06:44 MCH 33.1 pg (27.0-33.4) 09/09/19 06:44 MCHC 35.6 g/dL (32.0-36.0) 09/09/19 06:44 RDW 12.9 % (11.5-14.0) 09/09/19 06:44 Plt Count 167 10^3/uL (150-450) 09/09/19 06:44 Lymph % (Auto) 23.2 % (13-45) 09/08/19 00:31 [facility] % (Auto) 5.8 % (3-13) 09/08/19 00:31 Eos % (Auto) 0.5 % (0-6) 09/08/19 00:31 Baso % (Auto) 0.1 % (0-2) 09/08/19 00:31 Absolute Neuts (auto) 8.6 10^3/uL (1.7-8.2) H 09/08/19 00:31 Absolute Lymphs (auto) 2.8 10^3/uL (0.5-4.7) 09/08/19 00:31 Absolute Monos (auto) 0.7 10^3/uL (0.1-1.4) 09/08/19 00:31 Absolute Eos (auto) 0.1 10^3/uL (0.0-0.6) 09/08/19 00:31 Absolute Basos (auto) 0.0 10^3/uL (0.0-0.2) 09/08/19 00:31 Seg Neutrophils % 70.4 % (42-78) 09/08/19 00:31 Urine Color YELLOW 09/07/19 21:44 Urine Appearance CLOUDY 09/07/19 21:44 Urine pH 7.0 (5.0-9.0) 09/07/19 21:44 Ur Specific [place] 1.015 09/07/19 21:44 Urine Protein NEGATIVE mg/dL (NEGATIVE) 09/07/19 21:44 Urine Glucose (UA) NEGATIVE mg/dL (NEGATIVE) 09/07/19 21:44 Urine Ketones NEGATIVE mg/dL (NEGATIVE) 09/07/19 21:44 Urine Blood SMALL (NEGATIVE) H 09/07/19 21:44 Urine Nitrite NEGATIVE (NEGATIVE) 09/07/19 21:44 Urine Bilirubin NEGATIVE (NEGATIVE) 09/07/19 21:44 Urine Urobilinogen NEGATIVE mg/dL (<2.0) 09/07/19 21:44 Ur Leukocyte Esterase MODERATE (NEGATIVE) H 09/07/19 21:44 Urine Ascorbic Acid NEGATIVE (NEGATIVE) 09/07/19 21:44 Urine Opiates Screen NEGATIVE 09/07/19 21:44 Urine Methadone Screen NEGATIVE 09/07/19 21:44 Ur Barbiturates Screen NEGATIVE 09/07/19 21:44 Ur Phencyclidine Scrn NEGATIVE 09/07/19 21:44 Ur Amphetamines Screen NEGATIVE 09/07/19 21:44 U Benzodiazepines Scrn NEGATIVE 09/07/19 21:44 Urine Cocaine Screen NEGATIVE 09/07/19 21:44 U Marijuana (THC) Screen NEGATIVE 09/07/19 21:44 RPR NONREACTIVE (NONREACTIVE) 09/08/19 00:31 Blood Type O POSITIVE 09/08/19 00:31 Antibody Screen NEGATIVE 09/08/19 00:31 Plan Plan of Treatment: f/u [facility] at [facility] Time Spent: Less than 30 Minutes
[2019-09-10 11:50] VITALS: BP 110/72
== END 2019-09-10 12:36 | disposition home or self-care (01) | DRG 807 ==
LOC: LC 21:36 → LR 23:44 → 2S 09-08 04:27
PROVIDERS: ADMIT Obstetrics & Gynecology; ATTEND Obstetrics & Gynecology
PROC: 10E0XZZ Delivery of Products of Conception, External Approach (ICD-10-PCS; principal; 2019-09-08)
DX: O76 Abnormality in fetal heart rate and rhythm complicating labor and delivery (principal); Z37.0 Single live birth; O99.334 Smoking (tobacco) complicating childbirth; F17.210 Nicotine dependence, cigarettes, uncomplicated; Z3A.40 40 weeks gestation of pregnancy
CPT/HCPCS: 36415; 80307; 81005; 85025; 85027; 86592; 86850; 86900; 86901; J2370; J2590; J3010; J3490

== ENCOUNTER → 2019-12-27 | Outpatient (CLI) | payer MEDICAID | LOC: OD 12:11 | PROVIDERS: ATTEND Obstetrics & Gynecology | DX: Z32.02 Encounter for pregnancy test, result negative (principal) | CPT/HCPCS: 36415; 84702 ==

== ENCOUNTER → 2020-01-07 | Outpatient (CLI) | payer MEDICAID | LOC: OD 13:03 | PROVIDERS: ATTEND Obstetrics & Gynecology | DX: O36.80X0 Pregnancy with inconclusive fetal viability, not applicable or unspecified (principal) | CPT/HCPCS: 36415; 84702 ==